=== PATIENT | male | born 1955 | race Caucasian/White ===

== ENCOUNTER 2025-02-04 11:00 | Outpatient (CLI) | payer MEDICARE, SELFPAY ==
--- OUTSIDE RECORDS SUMMARY | 2025-02-04 11:10 | XMS_ITS | Referral Summary ---
Author Organization [facility] [address] Address [address] [place] [address] Care Team Providers Care Dental Specialist Name Role Phone Jae Macdonald MD Primary Care Provider Main Vanessa MD Unavailable Stephanie Angela MD Unavailable [phone] Allergies No known active allergies Medications multivitamin capsule Take 1 capsule by mouth daily Active famotidine (PEPCID) 20 mg tablet Take 1 tablet (20 mg total) by mouth 2 (two) times a day 10/22/2020 Active atorvastatin (LIPITOR) 80 mg tablet Take 1 tablet (80 mg total) by mouth nightly 08/23/2020 Active melatonin 5 mg tablet,chewable Take 1 tablet/chew tab by mouth nightly 07/10/2019 Active rivaroxaban (XARELTO) 20 mg tablet Take 1 tablet (20 mg total) by mouth daily with dinner 09/05/2020 Active tamsulosin (FLOMAX) 0.4 mg extended release capsule Take 1 capsule (0.4 mg total) by mouth nightly 02/15/2021 Active aspirin 81 mg enteric coated tablet Take 1 tablet (81 mg total) by mouth daily Active dofetilide (TIKOSYN) 500 mcg capsuleIndicati ons:cardiac arrhythmia Take 1 capsule (500 mcg total) by mouth 2 (two) times a day 180 capsule 3 09/06/2022 Active magnesium oxide (MAG-OX) 400 mg (241.3 mg elemental magnesium) tabletIndicatio ns:hypomagnesem ia Take 1 tablet (400 mg total) by mouth 2 (two) times a day 60 tablet 11 09/06/2022 Active lisinopriL (PRINIVIL,ZESTR IL) 5 mg tablet Take 1 tablet (5 mg total) by mouth daily 30 tablet 02/13/2023 Active Active Problems Problem Noted Date Diagnosed Date S/P ablation of atrial fibrillation 02/12/2023 Atrial fibrillation 09/03/2022 Abnormal cardiovascular stress test 02/21/2021 Overview (02/21/2021): Added automatically from request for surgery [id number] S/P mitral valve repair 06/12/2017 Atrial flutter 09/17/2014 Overview (12/28/2016): A flutter Social History Tobacco Use Types Packs/Day Years Used Date Smoking Tobacco: Former Cigarettes 1 8 0 09/23/1973 - 09/23/1981 Smokeless Tobacco: Never Tobacco Cessation:Counseling Given: Not Answered Alcohol Use Standard Drinks/Week Comments Yes 0 (1 standard drink = 0.6 oz pur e alcohol) AUDIT-C Answer Date Recorded Q1: How often do you have a drink containing alcohol? Never 09/03/2022 Q2: How many drinks containi ng alcohol do you have on a typical day when you are drinking? Patient does not drink Q3: How often do you have si x or more drinks on one occasion? 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 Gender Identity Not on file Sexual Orientation Not on file Last Filed Vital Signs Vital Sign Reading Time Taken Comments Blood Pressure 154/70 02/13/2023 11:24 AM CDT Pulse 74 02/13/2023 11:50 AM CDT Temperature 37 C (98.6 F) 02/13/2023 11:24 AM CDT Respiratory Rate 20 02/13/2023 11:24 AM CDT Oxygen Saturation 95% 02/13/2023 11:24 AM CDT Inhaled Oxygen Concentration - - Weight 84.4 kg (186 lb) 02/12/2023 10:51 AM CDT Height 182.9 cm (6') 02/12/2023 10:51 AM CDT Body Mass Index 25.23 02/12/2023 10:51 AM CDT Plan of Treatment Not on file Insurance IDTN [facility] MEDICAID MEDICARE [facility] Address: [address] [address] [place] [address] MEDICARE IDTN MEDICARE [facility] Advance Directives For more information, please contact: [phone] * Full Code (Latest Code Status on File) Date Activated Date Inactivated Comments 09/05/2022 9:02 AM 09/06/2022 6:16 PM Care Teams Dental Specialist Relationship Specialty Start Date End Date Jae Macdonald MD [address] [address] PCP - General Gastroenterology 09/03/22 Main Vanessa MD [address] [facility] [place] [address] Consulting Physician Cardiovascular Disease 09/06/22 Stephanie Angela MD [address] [facility] [place] [address] Consulting Physician Cardiology 02/13/23
--- OUTSIDE RECORDS SUMMARY | 2025-02-04 11:10 | XMS_ITS | Encounter Summary ---
Author Organization [facility] Address [address] [facility] [address] [place] [id number] Care Team Providers Care Textile Machine Operator Name Role Phone David De La Rosa MD Primary Care Provider [phone] David De La Rosa MD Primary Care Provider [phone] Jae Macdonald MD Primary Care Provider Main Vanessa MD Unavailable Stephanie Angela MD Unavailable [phone] Encounter Details Date Type Department Care Team (Late st Contact Info) Description 10/23/2016 Orders Only [facility] ProviderLee MD [address] [place] [id number] Social History Tobacco Use Types Packs/Day Years Used Date Smoking Tobacco: Former Cigarettes Q uit: 09/23/1979 Alcohol Use Standard Drinks/Week Comments Yes 0 (1 standard drink = 0.6 oz pur e alcohol) Sex and Gender Information Value Date Recorded Sex Assigned at Not on file 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 Historical Provider [facility] Final Result documented in this encounter Visit Diagnoses Not on filedocumented in this encounter Care Teams Textile Machine Operator Relationship Specialty Start Date End Date David De La Rosa MD PCP - General 12/21/16 09/02/22 David De La Rosa MD PCP - General 03/12/13 12/20/16 Jae Macdonald MD [address] [address] PCP - General Gastroenterology 09/03/22 Main Vanessa MD [address] [place] [address] Consulting Physician Cardiovascular Disease 09/06/22 Stephanie Angela MD [address] [place] [address] Consulting Physician Cardiology 02/13/23 documented as of this encounter
--- OUTSIDE RECORDS SUMMARY | 2025-02-04 11:10 | XMS_ITS | Data Portability ---
[facility] Organization [facility] Address [address] [place] [address] Care Team Providers Care Java Analyst Name Role Phone JAE MACDONALD Primary Care Provider Unavailabl e Assessment No assessment recorded. Plan of Treatment Reminders Order Date Submit Date Provider Last Modified By Organization Details Last Modified Time Details Appointments ANY 15 2025 09:15A Silver Kidd MD Not available Not available Not available Lab CBC 2024 025 kolby [facility] (Lab), [address] [place], [address], 11/20/2024 12:25:29 CMP, serum or plasma 2024 025 [facility] (Lab), [address] [place], [address], 11/20/2024 20:43:25 PSA, total, serum or plasma [address] [facility], [address] [place] [address], [place] [address], [place], [address], 10/06/2024 13:10:10 CMP, serum or plasma [address] [facility], [address] [place] [address], [place] [address], [place], [address], 10/06/2024 13:10:09 lipid panel, serum [address] [facility], [address] [place] [address], [address] [place], [address], 10/06/2024 13:10:07 CBC 2024 025 [facility], [address], [address], [place], [address], 10/06/2024 13:10:11 Referral gastro entero logist referr al 2024 025 sravan ford [facility], [address], [place], [address], 11/17/2024 17:21:57 Procedures colono scopy proced ure (PROC) - If patien t is on blood thinne r less than 6 month, cleara nce is requir ed by prescr ibing provid er. If patien t is on blood thinne r over 6 months , blood thinne r is suppos ed to stoppe d 5 days prior to proced ure.Pa cemake r or defibr illato r?: NPrep (Colon oscopy Proced ure): PEG 3350, Go Lytely , Colyte or Gavaly te G, depend ing on insura nce covera geIf juliann chew has had duff ry / vascul ar stent, provid e date: NoNavdeep chew has had heart attack or stroke , provid e date: Emery chew ever had proble ms with anesth esia or sedati on?: Emery chew had proble ms with openin g mouth or breath ing tubes? : NoDoes juliann chew use a wheelc hair?: N 2024 025 Sakshi-Resubmit -Revert [facility] (Surgery Sched), [address] [facility] [address], [place], [address], 11/20/2024 14:50:38 Surgeries None record ed. Imaging None record ed. Medication Orders Vascep a 1 gram capsul e 2024 025 [id number], [address] [facility], [place], [place], [id number], 12/22/2024 12:03:12 Dulcol ax (bisac odyl) 5 mg tablet ,delay ed releas e [address] [facility][id number], [address], [place], [id number], 12/22/2024 11:20:54 Mirala x 17 gram/d ose oral powder [address] [facility][id number], [address], [place], [id number], 12/22/2024 11:20:42 Patient TargetsNo targets recorded. Patient Instructions Encounter Date Encounter Id Patient Instructions Last Modified By Organization Details Last Modified Time 10/05/2024 [id number] learning about high blood pressure Not available 10/05/2024 11:56:14 high cholesterol: care instructions [email or web address] Not available 10/05/2024 11:56:14 11/12/2024 [id number] learning about high blood pressure [email or web address] Not available 11/12/2024 11:51:39 high cholesterol: care instructions [email or web address] Not available 11/12/2024 11:51:39 11/20/2024 [id number] RL [email or web address] Not available 11/20/2024 12:01:18 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 Referral for History of polyp of colon Surveillance colonoscopy Referring Physician: Jae Macdonald, Internal Medicine, Encounter Date: 10/05/2024 Results Created Date Observation Date Name Description Value Unit Range Abnormal Flag Note LastModifiedBy Organization Detail LastModifiedTime 10/05/1910/06/2024 LIPID PANEL cholesterol, total 100 mg/dL 100-19 9 Not Available [facility] ([facility]) [address] [facility], [place], [address], 10/06/2024 13:10:07 10/05/19 25 10/06/2024 LIPID PANEL triglyceride s 318 mg/dL 0-149 above high normal Not Available [facility] ([facility]) [address] [facility] [place], [address], 10/06/2024 13:10:07 10/05/19 25 10/06/2024 LIPID PANEL HDL cholesterol 6 mg/dL >39 below low normal Not Available [facility] ([facility]) [address] [facility] [place], [address], 10/06/2024 13:10:07 10/05/19 25 10/06/2024 LIPID PANEL VLDL cholesterol ricardo 49 mg/dL 5-40 above high normal Not Available [facility] ([facility]) [address] [facility] [place], [address], 10/06/2024 13:10:07 10/05/19 25 10/06/2024 LIPID PANEL LDL chol calc ([facility]) 45 mg/dL 0-99 Not Available [facility] ([facility]) [address] [facility] [place], [address], 10/06/2024 13:10:07 10/05/19 25 10/06/2024 COMP. METAB OLIC PANEL (14) glucose 102 mg/dL 70-99 above high normal Not Available [facility] ([facility]) [address] [facility] [place], [address], 10/06/2024 13:10:09 10/05/19 25 10/06/2024 COMP. METAB OLIC PANEL (14) BUN 27 mg/dL 8-27 Not Available [facility] ([facility]) [address] [facility] [place], [address], 10/06/2024 13:10:09 10/05/19 25 10/06/2024 COMP. METAB OLIC PANEL (14) creatinine 1.02 mg/dL 0.76-1 .27 Not Available [facility] ([facility]) [address] [facility] [place], [address], 10/06/2024 13:10:09 01/13/20 25 10/06/2024 COMP. METAB OLIC PANEL (14) eGFR 80 mL/mi n/1.7 3 >59 Not Available [facility] ([facility]) [address] [place], [address], 10/06/2024 13:10:09 10/05/19 25 10/06/2024 COMP. METAB OLIC PANEL (14) BUN/creatini ne ratio 26 10-24 above high normal Not Available [facility] ([facility]) [address] [place], [address], 10/06/2024 13:10:09 10/05/19 25 10/06/2024 COMP. METAB OLIC PANEL (14) sodium 134 mmol/ L 134-14 4 Not Available [facility] ([facility]) [address] [place], [address], 10/06/2024 13:10:09 10/05/19 25 10/06/2024 COMP. METAB OLIC PANEL (14) potassium 4.9 mmol/ L 3.5-5. 2 Not Available [facility] ([facility]) [address] [place], [address], 10/06/2024 13:10:09 10/05/19 25 10/06/2024 COMP. METAB OLIC PANEL (14) chloride 101 mmol/ L 96-106 Not Available [facility] ([facility]) [address] [place], [address], 10/06/2024 13:10:09 10/05/19 25 10/06/2024 COMP. METAB OLIC PANEL (14) carbon dioxide, total 23 mmol/ L 20-29 Not Available [facility] ([facility]) [address] [place], [address], 10/06/2024 13:10:09 10/05/19 25 10/06/2024 COMP. METAB OLIC PANEL (14) calcium 8.5 mg/dL 8.6-10 .2 below low normal Not Available [facility] ([facility]) [address] [place], [address], 10/06/2024 13:10:09 10/05/19 25 10/06/2024 COMP. METAB OLIC PANEL (14) protein, total 7.3 g/dL 6.0-8. 5 Not Available [facility] ([facility]) [address] [place], [address], 10/06/2024 13:10:09 10/05/19 25 10/06/2024 COMP. METAB OLIC PANEL (14) albumin 3.0 g/dL 3.9-4. 9 below low normal Not Available [facility] ([facility]) [address] [place], [address], 10/06/2024 13:10:09 10/05/19 25 10/06/2024 COMP. METAB OLIC PANEL (14) globulin, total 4.3 g/dL 1.5-4. 5 Not Available [facility] ([facility]) [address] [place], [address], 10/06/2024 13:10:09 10/05/19 25 10/06/2024 COMP. METAB OLIC PANEL (14) bilirubin, total 0.6 mg/dL 0.0-1. 2 Not Available [facility] ([facility] [address] [place] [place], [address], 10/06/2024 13:10:09 10/05/19 25 10/06/2024 COMP. METAB OLIC PANEL (14) alkaline phosphatase 107 IU/L 44-121 Not Available [facility] ([facility]) [address] [place], [address], 10/06/2024 13:10:09 10/05/19 25 10/06/2024 COMP. METAB OLIC PANEL (14) AST (SGOT) 20 IU/L 0-40 Not Available [facility] ([facility]) [address] [facility], [place], [address], 10/06/2024 13:10:09 10/05/19 25 10/06/2024 COMP. METAB OLIC PANEL (14) ALT (SGPT) 19 IU/L 0-44 Not Available [facility] ([facility]) [address] [facility], [place], [address], 10/06/2024 13:10:09 10/05/19 25 10/06/2024 PROST ATE-S PECIF IC AG prostate specific Ag 0.3 NG/mL 0.0-4. 0 Bernabe ECLIA metho dolog y. Accor ding to the Ameri can Urolo gical Assoc iatio n, Serum PSA shoul d decre ase and remai n at undet ectab le level s after radic al prost atect tigre. The AUA defin es bioch emica l recur rence as an initi al PSA value 0.2 ng/mL or great er follo wed by a subse quent confi rmato ry PSA value 0.2 ng/mL or great er. Value s obtai pablo with diffe rent assay metho ds or kits canno t be used inter worley eably . Resul ts canno t be inter prete d as absol [place] evide nce of the prese nce or absen ce of [facility] se. Not Available [facility] ([facility]) [address] [facility], [place], [address], 10/06/2024 13:10:10 10/05/19 25 10/05/2024 CBC, PLATE LET, NO DIFFE RENTI AL WBC 13.0 x10e3 /uL 3.4-10 .8 above high normal Not Available [facility] ([facility]) [address] [facility], [place], [address], 10/06/2024 13:10:11 10/05/19 25 10/05/2024 CBC, PLATE LET, NO DIFFE RENTI AL RBC 3.48 x10e6 /uL 4.14-5 .80 below low normal Not Available [facility] ([facility]) [address] [facility], [place], [address], 10/06/2024 13:10:11 10/05/19 25 10/05/2024 CBC, PLATE LET, NO DIFFE RENTI AL hemoglobin 10.9 g/dL 13.0-1 7.7 below low normal Not Available [facility] ([facility]) [address] [facility], [place], [address], 10/06/2024 13:10:11 10/05/1910/05/2024 CBC, PLATE LET, NO DIFFE RENTI AL hematocrit 32.1 % 37.5-5 1.0 below low normal Not Available [facility] ([facility]) [address] [facility], [place], [address], 10/06/2024 13:10:11 10/05/19 25 10/05/2024 CBC, PLATE LET, NO DIFFE RENTI AL MCV 92 fL 79-97 Not Available [facility] ([facility]) [address] [place], [address], 10/06/2024 13:10:11 10/05/19 25 10/05/2024 CBC, PLATE LET, NO DIFFE RENTI AL MCH 31.3 pg 26.6-3 3.0 Not Available [facility] ([facility]) [address] [place], [address], 10/06/2024 13:10:11 10/05/19 25 10/05/2024 CBC, PLATE LET, NO DIFFE RENTI AL MCHC 34.0 g/dL 31.5-3 5.7 Not Available [facility] ([facility]) [address] [facility], [place], [address], 10/06/2024 13:10:11 10/05/19 25 10/05/2024 CBC, PLATE LET, NO DIFFE RENTI AL RDW 13.1 % 11.6-1 5.4 Not Available [facility] ([facility]) [address] [facility], [place], [address], 10/06/2024 13:10:11 10/05/19 25 10/05/2024 CBC, PLATE LET, NO DIFFE RENTI AL platelets 116 x10e3 /uL 150-45 0 below low normal Not Available [facility] ([facility]) [address] [facility], [place], [address], 10/06/2024 13:10:11 10/14/19 25 10/15/2024 LIPID PANEL cholesterol, total 94 mg/dL 100-19 9 below low normal Not Available [facility] ([facility]) [address] [facility], [place], [address], 10/15/2024 06:19:40 10/14/19 25 10/15/2024 LIPID PANEL triglyceride s 304 mg/dL 0-149 above high normal Not Available [facility] ([facility]) [address] [facility], [place], [address], 10/15/2024 06:19:40 10/14/19 25 10/15/2024 LIPID PANEL HDL cholesterol 7 mg/dL >39 below low normal Not Available [facility] ([facility]) [address] [facility], [place], [address], 10/15/2024 06:19:40 10/14/19 25 10/15/2024 LIPID PANEL VLDL cholesterol ricardo 47 mg/dL 5-40 above high normal Not Available [facility] ([facility]) [address] [place], [address], 10/15/2024 06:19:40 10/14/19 25 10/15/2024 LIPID PANEL LDL chol calc (nih) 40 mg/dL 0-99 Not Available [facility] ([facility]) [address] [place], [address], 10/15/2024 06:19:40 10/14/19 25 10/15/2024 VITAM IN B12 AND FOLAT E vitamin B12 634 pg/mL 232-12 45 Not Available [facility] ([facility]) [address] [place], [address], 10/15/2024 06:19:41 10/14/19 25 10/15/2024 VITAM IN B12 AND FOLAT E folate (folic acid), serum 15.5 NG/mL >3.0 A serum folat e tahir ntrat ion of less than 3.1 ng/mL is consi dered to repre sent clini ricardo defic iency . Not Available [facility] ([facility]) [address] [place], [address], 10/15/2024 06:19:41 10/14/19 25 10/15/2024 FE+TI BC+FE R iron bind.cap.(TI BC) 253 ug/dL 250-45 0 Not Available [facility] ([facility]) [address] [facility], [place], [address], 10/15/2024 06:19:42 10/14/19 25 10/15/2024 FE+TI BC+FE R UIBC 149 ug/dL 111-34 3 Not Available [facility] ([facility]) [address] [place], [address], 10/15/2024 06:19:42 10/14/19 25 10/15/2024 FE+TI BC+FE R iron 104 ug/dL 38-169 Not Available [facility] ([facility]) [address] [place], [address], 10/15/2024 06:19:42 10/14/19 25 10/15/2024 FE+TI BC+FE R iron saturation 41 % 15-55 Not Available [facility] ([facility]) [address] [place], [address], 10/15/2024 06:19:42 10/14/19 25 10/15/2024 FE+TI BC+FE R ferritin 1391 NG/mL 30-400 above high normal Not Available [facility] ([facility]) [address] [facility], [place], [address], 10/15/2024 06:19:42 10/14/19 25 10/17/2024 VITAM IN B1 (THIA MINE) , BLOOD vit. B1, whole blood 117.2 nmol/ L 66.5-2 00.0 Not Available [facility] ([facility]) [address] [facility], [place], [address], 10/18/2024 06:44:31 11/20/19 25 11/20/2024 COMPR EHENS RAHEEM METAB OLIC PANEL sodium 138 mmol/ L 134-14 4 normal Not Available [facility] (Lab) [address] [place], [address], 11/20/2024 20:43:25 11/20/19 25 11/20/2024 COMPR EHENS RAHEEM METAB OLIC PANEL potassium 4.0 mmol/ L 3.5-5. 2 Not Available [facility] (Lab) [address] [place], [address], 11/20/2024 20:43:25 11/20/19 25 11/20/2024 COMPR EHENS RAHEEM METAB OLIC PANEL chloride 103 mmol/ L 96-106 normal Not Available [facility] (Lab) [address] [place], [address], 11/20/2024 20:43:25 11/20/19 25 11/20/2024 COMPR EHENS RAHEEM METAB OLIC PANEL carbon dioxide 29 mmol/ L 20-29 normal Not Available [facility] (Lab) [address] [place], [address], 11/20/2024 20:43:25 11/20/19 25 11/20/2024 COMPR EHENS RAHEEM METAB OLIC PANEL anion gap 11.0 mmol/ L Not Available [facility] (Lab) [address] [place], [address], 11/20/2024 20:43:25 11/20/19 25 11/20/2024 COMPR EHENS RAHEEM METAB OLIC PANEL blood urea nitrogen 24 mg/dL 8-27 normal Not Available [facility] (Lab) [address] [place], [address], 11/20/2024 20:43:25 11/20/19 25 11/20/2024 COMPR EHENS RAHEEM METAB OLIC PANEL creatinine 0.96 mg/dL 0.76-1 .27 normal Not Available [facility] (Lab) [address] [place], [address], 11/20/2024 20:43:25 11/20/19 25 11/20/2024 COMPR EHENS RAHEEM METAB OLIC PANEL glomerular filtration rate 86 mL/mi n/1 Not Available [facility] (Lab) [address] [place], [address], 11/20/2024 20:43:25 11/20/19 25 11/20/2024 COMPR EHENS RAHEEM METAB OLIC PANEL BUN creatinine ratio 24 10-24 normal Not Available [facility] (Lab) [address] [facility], [place], [address], 11/20/2024 20:43:25 11/20/19 25 11/20/2024 COMPR EHENS RAHEEM METAB OLIC PANEL glucose 106 mg/dL 70-99 high Not Available [facility] (Lab) [address] [place], [address], 11/20/2024 20:43:25 11/20/19 25 11/20/2024 COMPR EHENS RAHEEM METAB OLIC PANEL osmolality calculated 280 280-30 1 normal Not Available [facility] (Lab) [address] [place], [address], 11/20/2024 20:43:25 11/20/19 25 11/20/2024 COMPR EHENS RAHEEM METAB OLIC PANEL calcium 9.2 mg/dL 8.6-10 .2 normal Not Available [facility] (Lab) [address] [place], [address], 11/20/2024 20:43:25 11/20/19 25 11/20/2024 COMPR EHENS RAHEEM METAB OLIC PANEL bilirubin total 0.3 mg/dL 0.0-1. 2 normal Not Available [facility] (Lab) [address] [place], [address], 11/20/2024 20:43:25 11/20/19 25 11/20/2024 COMPR EHENS RAHEEM METAB OLIC PANEL AST aspartate aminotransfe rase 29 IU/L 0-40 normal Not Available [facility] ([facility]) [address], [place], [address], 11/20/2024 20:43:25 11/20/19 25 11/20/2024 COMPR EHENS RAHEEM METAB OLIC PANEL ALT (alanine aminotransfe rase) 26 IU/L 0-44 normal Not Available [facility] (Lab) [address] [place], [address], 11/20/2024 20:43:25 11/20/19 25 11/20/2024 COMPR EHENS RAHEEM METAB OLIC PANEL total protein 8.1 g/dL 6.0-8. 5 normal Not Available [facility] (Lab) [address] [place], [address], 11/20/2024 20:43:25 11/20/19 25 11/20/2024 COMPR EHENS RAHEEM METAB OLIC PANEL albumin level 4.0 g/dL 3.9-4. 9 normal Not Available [facility] (Lab) [address] [place], [address], 11/20/2024 20:43:25 11/20/19 25 11/20/2024 COMPR EHENS RAHEEM METAB OLIC PANEL globulin 4.1 g/dL 1.5-4. 5 normal Not Available [facility] (Lab) [address] [place], [address], 11/20/2024 20:43:25 11/20/19 25 11/20/2024 COMPR EHENS RAHEEM METAB OLIC PANEL albumin globulin ratio 1.0 1.2-2. 2 low Not Available [facility] (Lab) [address], [place], [address], 11/20/2024 20:43:25 11/20/19 25 11/20/2024 COMPR EHENS RAHEEM METAB OLIC PANEL alkaline phosphatase 79 IU/L 44-121 normal Not Available [facility] (Lab) [address], [place], [address], 11/20/2024 20:43:25 Result Notes None recorded. Problems Name Problem SNOMED Code Status Onset Date Resolution Date Notes Provider Name and Address Organization Details Recorded Time [facility] hyperten any 38155486 Active 2017 Not Available [facility] 3 22:33:39 History of polyp of colon 208843039 Active 2017 Not Available [facility] 3 22:33:39 History of atrial flutter 623964614 Active 2017 Not Available [facility] 3 22:33:39 Lower urinary tract symptoms 104264076 Active 2017 Slow urinary flow Not Available [facility] 3 22:33:39 History of urethral strictur e 858097876 Active 2017 Not Available [facility] 3 22:33:39 Hepatiti s C virus detected by enzyme-l inked immunoso rbent assay 892696771 Completed 201710/29/2018 Removal Reason: Confirma tory assay negative Jae Macdonald MD Attn: Accounting ,[address] [place], [address] , [facility] 9 11:35:16 Screenin g for malignan t neoplasm of prostate Active 2017 Not Available [facility] 3 22:33:39 Hyperlip idemia 24708149 Active 2018 Not Available [facility] 3 22:33:39 Hypergly cemia 03859671 Active 2018 Not Available [facility] 3 22:33:39 Divertic ular disease 641883545 Active 2018 Not Available [facility] 3 22:33:39 History of repair of mitral valve 019993640 Active 2018 Not Available [facility] 3 22:33:39 Gastroes ophageal reflux disease without esophagi tis 518083503 Active 2018 Not Available [facility] 3 22:33:39 Active immuniza tion Active 2018 Not Available [facility] 3 22:33:39 Cardiova scular stress test abnormal 664540933 Active 2019 Not Available [facility] 3 22:33:39 Injury of right shoulder 91946569604 485608 Active 2021 Not Available [facility] 3 22:33:39 Chronic atrial fibrilla tion 614888340 Active 2021 Not Available [facility] 3 22:33:39 Cardiac arrhythm ia 583260688 Active 2022 Not Available [facility] 3 22:33:39 Bradycar amarjit 11577035 Active 2022 Not Available [facility] 3 22:33:39 Disorder of skin 26128885 Active 2023 Jae Macdonald MD Attn: Accounting ,[address] [place], [address] , [place] [facility] 4 05:49:08 Blood in urine 56995217 Active 2023 Jae Macdonald MD Attn: Accounting ,[address] [place], [address] , [place] [facility] 4 10:54:04 Anemia 311539385 Active 2024 Jae Macdonald MD Attn: Accounting ,[address] [place], [address] , [place] [facility] 5 02:36:12 Hypertri glycerid emia 423337678 Active 2024 Jae Macdonald MD Attn: Accounting ,[address] , [place], [address] , [facility] 5 11:59:31 Problem Notes None recorded. Procedures Surgical History Date Name Laterality Status Provider Name and Address Organization Details Recorded Time 09/23/19 08 mitral valvuloplasty completed Sebastien Rico DO [address] [place], [address], [facility] 11/19/2018 15:45:46 Imaging Results None recorded. Procedure Notes None recorded. Medical Equipment None Reported. Allergies No known drug allergies Medications Name Sig Start Date Stop Date Status Note LastModified by Organization Details LastModified Time amoxicilli n 500 mg capsule TAKE 1 CAPSULE BY MOUTH THREE TIMES DAILY UNTIL ALL TAKEN active Not Available Not Available No t Available atorvastat in 80 mg tablet TAKE 1 TABLET BY MOUTH EVERY DAY DIRECTED active Not Available Not Available No t Available aspirin 325 mg tablet Take 1 tablet every day by oral route. 08/31 completed Not Available Not Available Not Available metoprolol succinate ER 50 mg tablet,ext ended release 24 hr TAKE 1 TABLET BY MOUTH EVERY DAY 04/02 completed Not Available Not Available Not Available cephalexin 250 mg capsule 04/02 completed Not Available Not Available Not Available hydrocodon e 5 mg-acetami nophen 325 mg tablet TAKE 1 TABLET BY MOUTH DAILY EVERY 6 HOURS NEEDED FOR PAIN 02/20 completed Not Available Not Available Not Available clopidogre l 75 mg tablet TAKE 1 TABLET BY MOUTH DAILY 02/20 completed Not Available Not Available Not Available amlodipine 5 mg tablet TAKE 1 TABLET BY MOUTH DAILY 02/20 completed Not Available Not Available Not Available amoxicilli n 500 mg tablet TAKE 4 TABLETS BY MOUTH 1 HOUR BEFORE PROCEDUR E 02/20 completed Not Available Not Available Not Available oxycodone- acetaminop hen 5 mg-325 mg tablet 12/01 completed Not Available Not Available Not Available famotidine 20 mg tablet TAKE 1 TABLET BY MOUTH TWICE DAILY 02/20 completed Not Available Not Available Not Available magnesium oxide 400 mg (241.3 mg magnesium) tablet TAKE 1 TABLET BY MOUTH TWICE DAILY. active Not Available Not Available No t Available tamsulosin 0.4 mg capsule TAKE 1 CAPSULE BY MOUTH EVERY DAY DIRECTED active Not Available Not Available No t Available cephalexin 500 mg capsule TAKE ONE CAPSULE BY MOUTH TWICE DAILY 02/20 completed Not Available Not Available Not Available ramipril 2.5 mg capsule TAKE 1 CAPSULE BY MOUTH EVERY DAY 04/02 completed Not Available Not Available Not Available lisinopril 10 mg tablet TAKE 1 TABLET BY MOUTH DAILY 04/02 completed Not Available Not Available Not Available warfarin 5 mg tablet 02/20 completed Not Available Not Available Not Available amoxicilli n 250 mg capsule TAKE 1 CAPSULE BY MOUTH 1 HOUR PRIOR TO DENTAL APPOINTM ENT 05/16 completed Not Available Not Available Not Available bisacodyl 5 mg tablet,del ayed release At 2:00 PM the day before the colonosc opy, take all 4 tablets of Dulcolax by mouth at one time with 8 ounces of water 12/22 completed Not Available Not Available Not Available lisinopril 5 mg tablet TAKE 1 TABLET BY MOUTH EVERY DAY active haven't been taking Not Available Not Available Not Available mupirocin 2 % topical ointment 11/19 completed Not Available Not Available Not Available polyethyle ne glycol 3350 17 gram/dose oral powder 12/22 completed Not Available Not Available Not Available dofetilide 500 mcg capsule TAKE 1 CAPSULE BY MOUTH TWICE DAILY active Not Available Not Available No t Available doxycyclin e hyclate 100 mg tablet 11/19 completed Not Available Not Available Not Available finasterid e 5 mg tablet TAKE 1 TABLET BY MOUTH EVERY DAY DIRECTED 2024 active Not Available Not Available Not Avai lable ramipril 5 mg capsule TAKE 1 CAPSULE BY MOUTH EVERY DAY 02/20 completed Not Available Not Available Not Available diltiazem 90 mg tablet TAKE 1 TABLET BY MOUTH TWICE DAILY active Not Available Not Available No t Available ezetimibe 10 mg tablet TAKE 1 TABLET BY MOUTH EVERY DAY 2024 active Not Available Not Available Not Avai lable omega-3 acid ethyl esters 1 gram capsule TAKE 2 CAPSULE BY MOUTH TWICE DAILY WITH MEALS 12/22 completed Not Available Not Available Not Available peg 3350 240 gram-elect rolytes 22.72 gram-6.72 g-5.84 g powdr for soln 08/31 completed Not Available Not Available Not Available Suprep Bowel Prep Kit 17.5 gram-3.13 gram-1.6 gram oral solution Take 300 mL by oral route for 1 day. 08/31 completed Not Available Not Available Not Available Xarelto 20 mg tablet TAKE 1 TABLET BY MOUTH DAILY WITH MEAL active Not Available Not Available No t Available Vascepa 1 gram capsule TAKE 2 CAPSULES BY MOUTH TWICE DAILY active Not Available Not Available No t Available Afluria Quad (PF) 60 mcg (15 mcg x 4)/0.5 mL IM syringe 11/19 completed Not Available Not Available Not Available Afluria Qd 2019- (36 mos up)(PF)60 mcg (15 mcg x4)/0.5 mL IM syringe 08/15 completed Not Available Not Available Not Available Vitals Date Recorded Body height Body mass index (BMI) Body weight Heart rate Oxygen saturation Oxygen saturation in Arterial blood by Pulse oximetry Systolic blood pressure Diastolic blood pressure Provider Name and Address Organization Details Last Updated DateTime 5 182.88 cm 24.4 kg/m2 37456.0 6 g 73 /min 98 % 98 % 90 mm[Hg] 40 mm[Hg] Hector Morrison [place] - SIF 5 11:36:38 [id number]|2025-02-04 11:10:00|2025-02-04 11:10:00|XMS_ITS|ROSEMARY LOPEZ|External Medical Summaries|[id number]|" Clinical Summary Created on: February 04, 2025 Kristopher Truong : 1955 Sex: Male Author Organization [facility] Address [address] [place] [address] Care Team Providers Care Java Analyst Name Role Phone Jae Macdonald MD Primary Care Provider [phone] Source Comments [facility],non-owned Affiliates and Associated Physician Practices is amultiple site organization consisting of ambulatory clinics and hospital sitesin [place], [place] and [place]. This disclosure is being madepursuant to the Care Everywhere program and may not contain all information available regarding this patient. Last updated 18.[facility] Allergies No known active allergies Medications * Be aware that medications may not be up to date on this document. Alwaysverify current medications with the patient. ramipril (ALTACE) 5 MG capsule Take 5 mg by mouth once daily Active amLODIPine (NORVASC) 5 MG tablet Take 5 mg by mouth once daily Active warfarin (COUMADIN) 5 MG tablet Take 5 mg by mouth Active famotidine (PEPCID) 20 MG tablet Take 20 mg by mouth 2 times daily Active tamsulosin (FLOMAX) 0.4 MG capsule Take 0.4 mg by mouth once daily At the same time every day after a meal. 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 Gender Identity Not on file Sexual Orientation Not on file Last Filed Vital Signs Vital Sign Reading Time Taken Comments Blood Pressure 125/66 08/23/2020 8:22 AM HOOKING MACHINE OPERATOR Pulse 55 08/23/2020 8:22 AM HOOKING MACHINE OPERATOR Temperature 36.7 C (98 F) 08/23/2020 8:22 AM HOOKING MACHINE OPERATOR Respiratory Rate 18 08/23/2020 8:22 AM HOOKING MACHINE OPERATOR Oxygen Saturation 93% 08/23/2020 8:22 AM HOOKING MACHINE OPERATOR Inhaled Oxygen Concentration - - Weight 86.9 kg (191 lb 9.6 oz) 08/22/2020 12:50 PM HOOKING MACHINE OPERATOR Height 182.9 cm (6') 08/22/2020 12:50 PM HOOKING MACHINE OPERATOR Body Mass Index 25.99 08/22/2020 12:50 PM HOOKING MACHINE OPERATOR Plan of Treatment Health Maintenance Due Date Last Done Comments COLOGUARD (AGES 45-75) - COL ON CA SCREENING 1955 COLON MONITORING 1955 COLONOSCOPY - COLON CA SCREENING 1955 CT COLONOGRAPHY - COLON CA SCREENING 1955 Colorectal Cancer Screening 1955 FIT - COLON CA SCREENING 1955 FLEX SIG - COLON CA SCREENING 1955 HEPATITIS C SCREENING 08/21/1973 DTAP/TDAP/TD VACCINES (1 - Tdap) 1974 PNEUMOCOCCAL VACCINE 50+ (1 of 1 - PCV) 2005 ZOSTER VACCINE (1 of 2) 2005 COVID-19 VACCINE ( - 2023-2 5 season) 2024 DEPRESSION SCREENING 09/23/2024 INFLUENZA VACCINE (Season Ended) 2025 Respiratory Syncytial Virus (RSV) Vaccine Pt: or over 60 yrs (1 - 1-dose 75+ series) 2030 HEPATITIS B VACCINE Aged Out No longe r eligible based on patient's age to complete this topic HIB VACCINE Aged Out No longer eligi ble based on patient's age to complete this topic HPV VACCINE Aged Out No longer eligi ble based on patient's age to complete this topic MENINGOCOCCAL (Group B) VACC INE SHARED DECISION-MAKING Aged Out No longer eligibl e based on patient's age to complete this topic MENINGOCOCCAL GROUPS A/C/Y/W VACCINE Aged Out No longer eligible b ased on patient's age to complete this topic Insurance MEDICARE Advance Directives * Full Code (Latest Code Status on File) Date Activated Date Inactivated Comments 08/22/2020 3:54 PM 08/23/2020 12:36 PM * Full Code Date Activated Date Inactivated Comments 08/22/2020 3:34 PM 08/22/2020 3:54 PM Care Teams Java Analyst Relationship Specialty [place] [address] [place] [phone] PCP - General Gastroenterology 08/27/19 "
--- OUTSIDE RECORDS SUMMARY | 2025-02-04 11:10 | XMS_ITS | Clinical Summary ---
Author Organization [facility] Shawn De Jesus Address [address] [place] [address] Care Team Providers Care Manager Test Name Role Phone Unavailable Primary Care Provider Unavailabl e Allergies No known active allergies Medications atorvastatin (LIPITOR) 80 mg tablet Take 80 mg by mouth daily. 11/20/2022 Active ezetimibe (ZETIA) 10 mg tablet Take 1 Tablet by mouth daily. 01/17/2025 Active Xarelto 20 mg Tablet Take 20 mg by mouth daily with supper. 02/19/2023 Active dofetilide (TIKOSYN) 500 mcg capsule Take 500 mcg by mouth 2 times daily. Active dilTIAZem (CARDIZEM) 90 mg tablet Take 90 mg by mouth 2 times daily. 02/21/2024 Active finasteride (PROSCAR) 5 mg tablet Take 5 mg by mouth daily. 11/24/2024 Active tamsulosin (FLOMAX) 0.4 mg capsule Take 0.4 mg by mouth daily. Active aspirin (ECOTRIN EC) 81 mg Tablet, Delayed Release (E.C.) Take 81 mg by mouth daily. Active famotidine (PEPCID) 20 mg tablet Take 20 mg by mouth 2 times daily. Active magnesium OXIDE (MAG-OX) 400 mg (241.3 mg magnesium) tablet Take 400 mg by mouth 2 times daily. 09/06/2022 Active icosapent ethyl (VASCEPA ORAL) Take 1,000 mg by mouth 2 times daily. Active flaxseed oil (OMEGA 3 ORAL) Take by mouth 2 times daily. OMEGA 3-VASCEPA 1000MG Active Active Problems No known active problems Encounters Date Type Department Care Team Description 02/04/2025 10:30 AM CDT Office Visit [facility] On[facility] - [place] [address] [place] [address] Brennon Barton MD Chronic anemia (Primary Dx); Leukocytosis, unspecified type from Last 3 Months Family History Medical History Relation Name Comments Esophageal Cancer Brother Heart Disease Brother No Known Problems Child 1 No Known Problems Child 2 Heart Disease Father No Known Problems Mother No Known Problems Sister Relation Name Status Comments Brother Alive Child 1 Alive Child 2 Alive Father Mother Sister Alive Social History Tobacco Use Types Packs/Day Years Used Date Smoking Tobacco: Never Smokeless Tobacco: Never Tobacco Cessation:Counseling Given: Not Answered Alcohol Use Standard Drinks/Week Comments Never 0 (1 standard drink = 0.6 oz pur e alcohol) Sex and Gender Information Value Date Recorded Sex Assigned at Not on file 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 Gender Identity Not on file Sexual Orientation Not on file Last Filed Vital Signs Vital Sign Reading Time Taken Comments Blood Pressure 119/76 02/04/2025 10:22 AM CDT Pulse 72 02/04/2025 10:22 AM CDT Temperature 36.8 C (98.3 F) 02/04/2025 10:22 AM CDT Respiratory Rate 15 02/04/2025 10:22 AM CDT Oxygen Saturation 96% 02/04/2025 10:22 AM CDT Inhaled Oxygen Concentration - - Weight 80.7 kg (178 lb) 02/04/2025 10:22 AM CDT Height 180.3 cm (5' 11 ) 02/04/2025 10:22 AM CDT Body Mass Index 24.83 02/04/2025 10:22 AM CDT Plan of Treatment Upcoming Encounters Date Type Department Care Team (Late st Contact Info) Description 02/22/2025 4:30 PM CDT Telephone Check Up [facility] [place] [address] [place] [address] Brennon Barton MD [address] [place] [address] Health Maintenance Due Date Last Done Comments DTAP/TDAP/TD VACCINES (1 - Tdap) 1974 Traditional Medicare (ACO) A nnual Wellness Visit 1974 COLORECTAL SCREENING 2000 Colorectal Cancer Screening 2000 FIT-DNA Q 3 years 2000 FIT/FOBT Q 1 year 2000 Flex Sig/CT Colonography Q 5 years 2000 PNEUMOCOCCAL VACCINE 50+ YEA RS (1 of 1 - PCV) 2005 ZOSTER VACCINE (1 of 2) 2005 INFLUENZA VACCINE (#1) 2024 COVID-19 Vaccine (3 - 2023- season) 2024, 11/09/2020 RSV VACCINE (60+ or ) (1 - 1-dose 75+ series) 2030 Insurance MEDICARE PART A AND B BCBS SUPP
--- OUTSIDE RECORDS SUMMARY | 2025-02-04 11:10 | XMS_ITS | Clinical Summary ---
Author Organization [facility] Address [address] [place] [address] Care Team Providers Care Zone Maintenance Technician Name Role Phone Jae Macdonald MD Primary Care Provider [phone] Allergies No known active allergies Medications atorvastatin 80 MG tablet Take 80 mg by mouth nightly at bedtime. at bedtime. 10/12/2020 Active famotidine 20 MG tablet Take 20 mg by mouth 2 (two) times daily. 10/22/2020 Active Multiple Vitamin (MULTIVITAMIN) capsule Take 1 capsule by mouth daily. Active tamsulosin 0.4 MG Cap Take 0.4 mg by mouth every evening. 09/04/2020 Active HYDROcodone-cara taminophen 5-325 MG tabletIndicatio ns:Acute Pain < 3 Day Supply Take 1 tablet by mouth every 6 (six) hours as needed for Pain. Indications: Acute Pain < 3 Day Supply 12 tablet 11/20/2021 Active XARELTO 20 MG Tab tablet TAKE 1 TABLET BY MOUTH DAILY WITH MEAL 12/14/2021 Active ramipril 2.5 MG capsule Take 2.5 mg by mouth in the morning. 01/21/2022 Active Aspirin 81 MG Cap 09/22/2020 Active Active Problems Problem Noted Date Diagnosed Date Coronary artery disease invo lving [place] coronary artery of [place] heart 08/22/2020 Unspecified atrial fibrillation ([facility] ) 07/10/2019 S/P mitral valve repair 06/12/2017 Mitral valve disorder 02/27/2008 Immunizations Immunization Administration Dates Next Due MODERNA COVID-19 (12+) MRNA, LNP-S, PF, 100 MCG/ 0.5 ML DOSE 12/07/2020,11/09/2020 Family History Medical History Relation Comments Heart Disease Father Hypertension Father Hypertension Mother Stroke Mother Relation Status Comments Father Mother Social History Tobacco Use Types Packs/Day Years Used Date Smoking Tobacco: Former Cigarettes Smokeless Tobacco: Never Alcohol Use Standard Drinks/Week Comments Not Currently 0 (1 standard drink = 0.6 oz pur e alcohol) Sex and Gender Information Value Date Recorded Sex Assigned at Not on file Legal Sex Male 1:38 PM ETL DATABASE DEVELOPER Gender Identity Not on file Sexual Orientation Not on file Last Filed Vital Signs Vital Sign Reading Time Taken Comments Blood Pressure 153/92 05/15/2022 9:51 AM CDT Pulse 74 05/15/2022 9:51 AM CDT Temperature 36.7 C (98.1 F) 05/15/2022 9:51 AM CDT Respiratory Rate 18 05/15/2022 9:51 AM CDT Oxygen Saturation 99% 05/15/2022 9:51 AM CDT Inhaled Oxygen Concentration - - Weight 81.6 kg (180 lb) 05/15/2022 9:51 AM CDT Height 182.9 cm (6') 05/15/2022 9:51 AM CDT Body Mass Index 24.41 05/15/2022 9:51 AM CDT Plan of Treatment Health Maintenance Due Date Last Done Comments ASCVD LDL 1955 ASCVD Statin 1955 Colorectal Cancer Screening Colonoscopy (10 Years) 1955 Hepatitis C 1973 DTaP, Tdap and Td Vaccines ( 1 - Tdap) 1974 Pneumococcal Vaccine: 50+ Years (1 of 2 - PCV) 1974 Zoster Vaccines (1 of 2) 2005 RSV Immunization or 60+ Years (1 - Risk 60-74 years 1-dose series) 2015 Annual Medicare Wellness Visit 2020 COVID-19 Vaccine (3 - 2023-2 5 season) 2024 12/07/2020, 11/09/2020 Meningococcal B Vaccine Aged Out No l onger eligible based on patient's age to complete this topic Meningococcal Vaccine Aged Out No gus leidy eligible based on patient's age to complete this topic RSV Immunizations Under 20 Months Aged Out No longer eligible b ased on patient's age to complete this topic Medical Devices Implanted Type [employer] Executive Device Identifier Shelf Expiration Date Model / Serial / Lot Mitral Ring-05/27/2008 Implanted:2007 (Quantity not on file) Ring [employer] NILO [id number] / / Description:Diego martinez Classic annuloplasty mitral ring. MRI Conditional Stent Stent Heart Leonardo 4.75mm Peek Knotless Deale System Single Implanted:Qty: 1 on 02/22/2022 by You Pacheco MD at [facility] Right: Shoulder 07/08/2023 3910-500- [id number] / / [id number] Leonardo 4.75 Mm Peek Knotless Deale System Double-Double Implanted:Qty: 1 on 02/22/2022 by You Pacheco MD at [facility] Right: Shoulder 06/15/2023 [id number] / / [id number] Insurance MEDICAID MEDICARE Care Teams Zone Maintenance Technician Relationship Specialty Start Date End Date Jae Macdonald MD [address] [place] [phone] PCP - General INTERNAL MEDICINE 11/09/20
--- OUTSIDE RECORDS SUMMARY | 2025-02-04 11:10 | XMS_ITS | Encounter Summary ---
Author Organization [facility] [email or web address] [facility] Address [address] [place] [address] Care Team Providers Care Dry Goods Inspector Name Role Phone Unavailable Primary Care Provider Unavailabl e Reason for Visit * Reason Comments Establish Care Encounter Details Date Type Department Care Team (Late st Contact Info) Description 02/04/2025 10:30 AM CDT Office Visit [facility] Oncology and Hematology - [place] [address] [facility] [address] [place] [address] Brennon Barton MD [address] [facility] [address] [place] [address] Chronic anemia (Primary Dx); Leukocytosis, unspecified type Social History Tobacco Use Types Packs/Day Years Used Date Smoking Tobacco: Never Smokeless Tobacco: Never Tobacco Cessation:Counseling Given: Not Answered Alcohol Use Standard Drinks/Week Comments Never 0 (1 standard drink = 0.6 oz pur e alcohol) Sex and Gender Information Value Date Recorded Sex Assigned at Not on file Legal Sex 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 Problem list There is no problem list on file for this patient. Previous TREATMENT ? Measurable Disease ? Reason for Visit Kristopher Truong is a 69 y.o. male who was referred for consultation for chronic anemia and leukocytosis. History of present illness This is a pleasant 69-year-old male with history of hypertension, hyperlipidemia, atrial fibrillation and status post MVR in 2007. He had labs done in September 2024 that showed elevated WBC count of 13 with hemoglobin of 10.9. He does not remember that if he was sick then. His platelet count was low at 116,000 as well. He denies any chest pain and shortness of breath. Denies any bleedingand bruising. Denies any night sweats fevers and chills. No new lumps bumps and lymphadenopathy. Weight and appetite stable. He is not taking any iron supplement. He is on multivitamin. Patient had colonoscopy done just 1 month ago and that came back unremarkable. He denies any excessive tiredness and fatigue. No other new complaints. Past Medical History Past Medical History: Diagnosis Date Diverticulitis Hyperlipidemia Atrial fibrillation Hypertension Mitral valve prolapse s/p repair Surgical History Past Surgical History: Procedure Laterality Date HX CORONARY STENT PLACEMENT [id number] HX HERNIA MESH REMOVAL HX MITRAL VALVE REPAIR 2007 HX PACEMAKER PLACEMENT 2022 HX ROTATOR CUFF REPAIR Right 2023 Medications Current Outpatient Medications Medication Sig Dispense Refill atorvastatin (LIPITOR) 80 mg tablet Take 80 mg by mouth daily. ezetimibe (ZETIA) 10 mg tablet Take 1 Tablet by mouth daily. Xarelto 20 mg Tablet Take 20 mg by mouth daily with supper. dilTIAZem (CARDIZEM) 90 mg tablet Take 90 mg by mouth 2 times daily. finasteride (PROSCAR) 5 mg tablet Take 5 mg by mouth daily. magnesium OXIDE (MAG-OX) 400 mg (241.3 mg magnesium) tablet Take 400 mg by mouth 2 times daily. icosapent ethyl (VASCEPA ORAL) Take 1,000 mg by mouth 2 times daily. flaxseed oil (OMEGA 3 ORAL) Take by mouth 2 times daily. OMEGA 3-VASCEPA 1000MG dofetilide (TIKOSYN) 500 mcg capsule Take 500 mcg by mouth 2 times daily. tamsulosin (FLOMAX) 0.4 mg capsule Take 0.4 mg by mouth daily. aspirin (ECOTRIN EC) 81 mg Tablet, Delayed Release (E.C.) Take 81 mg by mouth daily. famotidine (PEPCID) 20 mg tablet Take 20 mg by mouth 2 times daily. No current facility-administered medications for this visit. Allergies No Known Allergies Immunizations: Immunization History Administered Date(s) Administered (SPIKEVAX) (12 YRS UP PRIMARY SERIES) COVID-19 VACCINE - MRNA-1273(PF) 100 MCG/0.5 ML IM SUSP 11/09/2020, 12/07/2020 Family History Family History Problem Relation Name Age of Onset Heart Disease Father No Known Problems Mother Esophageal Cancer Brother Heart Disease Brother No Known Problems Sister No Known Problems Child No Known Problems Child Social History Social History Tobacco Use Smoking status: Never Smokeless tobacco: Never Substance Use Topics Alcohol use: Never Review of Systems Constitutional: Patient did not mention fever; no night sweats; no anorexia; no weight loss; no fatique NEENT: Patient did not mention headache; no change in vision; no change in hearing; no sore throat;no dysphagia Respiratory: Patient did not mention shortness of breath; no pleuritic chest pain; no cough; no hemoptysis Cardiac: Patient did not mention cardiac-like chest pain; no palpitations; no orthopnea; no PND; noDOE GI: Patient did not mention abdominal pain; no nausea; no vomiting; no diarrhea; no hematochezia; no melena : Patient did not mention dysuria; no frequency; no hesitancy; no hematuria FLOWER SHOP LABORER/DESIGNER: Musculosketetal: Patient did not mention bone pain; no arthralgia; no joint swelling; no myalgia; Skin: Patient did not mention pruritis; no rash; no petechiae; no ecchymoses Endocrine: Patient did not mention polydipsia; no polyuria; no unusual weight gain Neuro: Patient did not mention headache; no change in vision; no sensory changes; no muscle weakness; no confusion; no seizures Psych: Patient did not mention anxiety; no depression; Physical Exam Vitals: As per nursing note Constitutional: Well developed, well nourished, no acute distress, non-toxic appearance Teeth and gum. No signs of infection or swelling. Eyes: PERRL, conjunctiva normal HEENT: Atraumatic, external ears normal, nose normal, oropharynx moist, no pharyngeal exudates. no sinus tenderness Neck- normal range of motion, no tenderness, supple Respiratory: No respiratory distress, normal breath sounds, no rales, no wheezing Cardiovascular: Normal rate, normal rhythm, no murmurs, no gallops, no rubs GI: Soft, nondistended, normal bowel sounds, nontender, no splenomegaly, no hepatomegaly, no mass, no rebound, no guarding : No costovertebral angle tenderness Musculoskeletal: No edema, no tenderness, no deformities. Back- no tenderness Integument: Well hydrated, no rash, Digits and nails inspection normal Lymphatic: No lymphadenopathy noted Neurologic: Alert & oriented x 3, CN 2-12 normal, normal motor function, normal sensory function, no focal deficits noted Psychiatric: Speech and behavior appropriate ? labs No results found for this or any previous visit (from the past 24 hours). Labs from September 2024 showed WBC 13 hemoglobin 10.9 platelet 116,000 MCV 92 calcium 8.5 creatinine1.0 Pathology ? Imaging & Other Studies Performance Status? Assessment / Plan: ? Leukocytosis, normocytic anemia and mild thrombocytopenia. Patient is a 69-year-old pleasant male with history of hypertension, hyperlipidemia, atrial fibrillation and mitral valve prolapsestatus post repair. He is taking Xarelto. He denies any bleeding but bruise easily. He denies any ex cessive tiredness and fatigue. Denies any night sweats fever chills. No lymphadenopathy on my examination. I will order the comprehensive workup for anemia that will include CBC with differential, CMP, soluble transferrin receptor, iron profile, vitamin B12 and folic acid level along with methylmalo cal acid level. I will check C-reactive protein, sedimentation rate and flow cytometric analysis for leukemia as well. Abdominal ultrasound and remainder of the workup will be done based on the labs ordered today. I will discuss these labs with him in 2 weeks. I have answered all the questions to patient satisfaction. Atrial fibrillation. Patient is on Xarelto. Hyperlipidemia. Patient is on Lipitor. Thank you very much for allowing me to participate in Kristopher Truong's evaluation and management. Please feel free to contact if I can be of any further assistance in your patientâ€™s care requiring hematology or oncology evaluation. Sincerely, ? ? Brennon Barton M.D. cell TOBACCO COUNSELING He is not a tobacco/nicotine user. Brennon Barton MD ,02/04/2025 10:53 AM ? Total time spent 60 minutes, two third of the total time spent counseling patient [id number]. CC:? documented in this encounter Plan of Treatment Upcoming Encounters Date Type Department Care Team (Late st Contact Info) Description 02/22/2025 4:30 PM CDT Telephone Check Up [facility] Oncology and Hematology - [place] [address] [facility] [address] [place] [address] Brennon Barton MD [address] [facility] [address] [place] [address] Scheduled Orders Name Type Priority Associated Diagnoses Orde r Schedule CBC WITH DIFFERENTIAL Lab Stat Chronic anemia Expected: 02/04/2025, Expires: 02/04/2026 COMPREHENSIVE METABOLIC PANEL Lab Stat Chronic anemia Expected: 02/04/2025, Expires: 02/04/2026 FERRITIN Lab Routine Chronic anemia Expected: 02/04/2025, Expires: 02/04/2026 IRON, TIBC, AND PERCENT SATURATION Lab Routine Chronic anemia Expected: 02/04/2025, Expires: 02/04/2026 LACTATE DEHYDROGENASE Lab Routine Chronic anemia Expected: 02/04/2025, Expires: 02/04/2026 METHYLMALONIC ACID Lab Routine Chronic anemia Expected: 02/04/2025, Expires: 02/04/2026 TRANSFERRIN RECEPTOR TFR SOLUBLE Lab Routine Chronic anemia Expected: 02/04/2025, Expires: 02/04/2026 VITAMIN B12 AND FOLATE Lab Routine Chronic anemia Expected: 02/04/2025, Expires: 02/04/2026 FLOW CYTOMETRY PANEL Lab Routine Leukocytosis, unspecified type Expected: 02/04/2025, Expires: 02/04/2026 C-REACTIVE PROTEIN Lab Routine Leukocytosis, unspecified type Expected: 02/04/2025, Expires: 02/04/2026 SEDIMENTATION RATE Lab Routine Leukocytosis, unspecified type Expected: 02/04/2025, Expires: 02/04/2026 documented as of this encounter Visit Diagnoses Diagnosis Chronic anemia- Primary Anemia, unspecified Leukocytosis, unspecified type documented in this encounter
--- OUTSIDE RECORDS SUMMARY | 2025-02-04 11:10 | XMS_ITS | Clinical Summary ---
Author Organization [facility] [address] Address [address] [place] [address] Care Team Providers Care Mail Clerk Name Role Phone Jae Macdonald MD Primary Care Provider Main Vanessa MD Unavailable Stephanie Angela MD Unavailable [phone] Allergies No known active allergies Medications multivitamin [...] (02/21/2021): Added automatically from request for surgery [id number] S/P mitral valve repair 06/12/2017 Atrial flutter 09/17/2014 Overview (12/28/2016): A flutter Surgical History Surgery Date Site/Laterality Comments MITRAL VALVE REPAIR 09/23/2007 - 09/22/2008 Mitral Valve Repair CORONARY ANGIOPLASTY WITH STENT PLACEMENT HERNIA REPAIR 09/23/2013 - 09/22/2014 UHR HERNIA MESH REMOVAL 09/23/2017 - 09/22/2018 Medical History Medical History Date Comments Hypertension Hypertension Hx Other Medical Atrial Flutter Hx Other Medical Mitral Valve Pr olapse Abnormal cardiovascular stress test Coronary artery disease Family History Medical History Relation Name Comments Heart attack Brother 2 Myocardial Infa rction; Coronary artery disease Father Warren nary Artery Disease; Heart disease Father Mitral valve prolapse Mother Stroke Mother Relation Name Status Comments Brother 1 Alive Brother 2 Father Mother Social History Tobacco Use Types [...] on file 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 Gender Identity Not on file Sexual Orientation Not on file Obstetrics History Last Filed Vital Signs Vital Sign Reading [...] 02/12/2023 10:51 AM CDT Plan of Treatment Health Maintenance Due Date Last Done Comments Colon Cancer Screening-Colonoscopy 1955 Depression Screening 1955 Hepatitis C Screening 1955 Prostate Cancer Screening-PSA 1955 DTaP/Tdap/Td Vaccine (1 - Tdap) 1966 Hepatitis B Screening 1973 Pneumococcal vaccine 65+ (1 of 1 - PCV) 2005 Zoster Vaccine (1 of 2) 2005 Abdominal Aortic Aneurysm (A AA) Screen 2020 Well Visit 65+ 2020 Fall Risk Assessment 02/14/2024 02/13/2023 Covid-19 Vaccine (6 - 2023-2 5 season) 2024 05/29/2022, 12/21/2021, 05/21/2021, Additional history exists Influenza Vaccine (Season Ended) 2025 05/29/2022, 05/21/2021, 06/02/2020, Additional history exists Insurance [employer] [facility] MEDICAID MEDICARE MEDICARE [place] MEDICARE [facility] Advance Directives For more information, please contact: [phone] * Full Code (Latest Code Status on File) Date Activated Date Inactivated Comments 09/05/2022 9:02 AM 09/06/2022 6:16 PM Care Teams Mail Clerk Relationship Specialty Start Date End Date Jae Macdonald MD [address] [place] [id number] PCP - General Gastroenterology 09/03/22 Main Vanessa MD [address] [place] [address] Consulting Physician Cardiovascular Disease 09/06/22 Stephanie Angela MD [address] [place] [address] Consulting Physician Cardiology 02/13/23
[2025-02-04 11:37] LABS: Basophils Absolute Auto 0.1 K/mm3 (0.0-0.1); Basophils Percent Auto 0.8 % (0.2-1.2); Eosinophils Absolute Auto 0.3 K/mm3 (0-0.3); Eosinophils Percent Auto 2.9 % (0-4.4); Hematocrit 45.4 % (42.0-52.0); Hemoglobin 15.4 g/dL (14.0-18.0); Immature Granulocyte Absolute 0.02 K/mm3 (0.00-0.031); Immature Granulocyte Percent A 0.2 % (0-0.5); Lymphocytes Absolute Auto 3.23 K/mm3 (0.9-3.2); Mean Corpuscular HGB Conc 33.9 g/dl (32-36); Mean Corpuscular Hemoglobin 33.6 pg (26-34); Mean Corpuscular Volume 98.9 fl (80-100); Mean Platelet Volume 9.7 fl (7.4-10.4); Monocytes Absolute Auto 0.7 K/mm3 (0.1-0.6); Monocytes Percent Auto 7.8 % (2.6-8.5); Neutrophils Absolute Auto 4.3 K/mm3 (1.3-6.7); Neutrophils Percent Auto 50.3 % (45.5-73.1); Platelet Count Result 175 k/mm3 (150-375); Red Blood Count 4.59 M/mm3 (4.6-6.20); Red Cell Distribution Width 11.9 % (11.5-14.5); White Blood Count 8.5 K/mm3 (4.5-10.0)
[2025-02-04 12:28] LABS: Erythrocyte Sedimentation Rate 42 mm/hr (0-20)
[2025-02-04 13:50] LABS: Iron 123 ug/dL (49-181)
[2025-02-04 14:01] LABS: Percent Iron Saturation 36 % (20-50)
[2025-02-04 14:15] LABS: Alanine Aminotransferase 41 U/L (6-50); Albumin Level 4.7 g/dL (3.5-5.1); Alkaline Phosphatase 83 U/L (38-126); Anion Gap 8 mmol/L (4-12); Aspartate Amino Transferase 53 U/L (17-59); Bilirubin,Total 0.9 mg/dL (0.2-1.3); Blood Urea Nitrogen 30 mg/dL (9-20); CRP < 0.5 mg/dL (<1.0); Calcium 9.1 mg/dL (8.4-10.2); Carbon Dioxide 26 mmol/L (22-30); Chloride 104 mmol/L (98-107); Estimated Glomerular Filt Rate 57; Glucose 103 mg/dL (65-110); Lactate Dehydrogenase 260 U/L (120-246); Potassium 4.3 mmol/L (3.4-5.0); Sodium 138 mmol/L (137-145)
[2025-02-04 17:08] LABS: Folic Acid > 20.0 ng/mL (2.76->20)
[2025-02-07 09:09] LABS: Methylmalonic Acid 94 nmol/L (69-390)
[2025-02-08 13:59] LABS: Soluble Transferrin Receptor 0.92 mg/L (0.76-1.76)
== END 2025-02-04 11:01 | disposition home or self-care (01) ==
PROVIDERS: Visit Provider Internal Medicine Hematology & Oncology
DX: D72.829 Elevated white blood cell count, unspecified (principal); D64.9 Anemia, unspecified
CPT/HCPCS: 36415; 80053; 82607; 82728; 82746; 83540; 83550; 83615; 83921; 84238; 85025; 85652; 86140; 88184

== ENCOUNTER 2025-06-23 08:57 | Outpatient (CLI) | payer MEDICARE, SELFPAY ==
[2025-06-23 09:10] LABS: Hematocrit 45.8 % (42.0-52.0); Hemoglobin 15.0 g/dL (14.0-18.0); Immature Granulocyte Percent A 0.2 % (0-0.5); Lymphocytes Absolute Auto 2.96 K/mm3 (0.9-3.2); Mean Corpuscular HGB Conc 32.8 g/dl (32-36); Mean Corpuscular Hemoglobin 33.3 pg (26-34); Mean Corpuscular Volume 101.8 fl (80-100); Nucleated Red Blood Cells Absolute Auto 0.000 K/mm3 (0.0-0.012); Nucleated Red Blood Cells Perc 0.0 % (0.0-0.2); Platelet Count Result 172 k/mm3 (150-375); Red Blood Count 4.50 M/mm3 (4.6-6.20); White Blood Count 8.8 K/mm3 (4.5-10.0)
--- OUTSIDE RECORDS SUMMARY | 2025-06-23 09:23 | XMS_ITS | Clinical Summary ---
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 Gender Identity Not on file Sexual Orientation [...] Assessment 02/14/2024 02/13/2023 Covid-19 Vaccine (6 - 2024-2 6 season) 2025 05/29/2022, 12/21/2021, 05/21/2021, Additional history exists Influenza Vaccine (#1) 2025 , 05/21/2021, 06/02/2020, Additional history exists Insurance [employer] [facility] MEDICAID MEDICARE [place] [address] [facility] Advance Directives For more information, please contact: [phone] * Full Code (Latest Code Status on File) Date Activated Date Inactivated Comments 09/05/2022 9:02 AM 09/06/2022 6:16 PM Care Teams Conduit Installer Relationship Specialty Start Date End Date Jae Macdonald MD [address] [place] [id number] PCP - General Gastroenterology 09/03/22 Main Vanessa MD [address] [place] [address] Consulting Physician Cardiovascular Disease 09/06/22 Stephanie Angela MD [address] [place] [address] Consulting Physician Cardiology 02/13/23
--- OUTSIDE RECORDS SUMMARY | 2025-06-23 09:23 | XMS_ITS | Data Portability ---
Author Organization [facility] Address [address] [place] [address] Care Team Providers Care Pillowcase Maker Name Role Phone ILAN VANESSA Hourly Caregiver SANTO BARTON Coal Weigher ALEJA DERMATOLOGY [employer] English Teacher ROSA NIETO Hourly Caregiver [phone] Assessment No assessment recorded. Plan of Treatment Reminders Order Date Submit Date Provider Last Modified By Organization Details Last Modified Time Details Appointments ANY 15 2025 09:15A Silver Ott MD Not available Not available Not available ANY 15 2025 09:15A Silver Kidd MD Not available Not available Not available Lab lipid panel, serum 2024 025 [facility], [facility] [place], [address], [place], [address], 05/21/2025 13:11:53 microalb umin/cre atinine, mass ratio, urine 2024 025 [facility], [address] [facility], [address], [place], [address], 05/21/2025 13:11:52 TSH, ultra-se nsitive, serum 2024 025 [facility], [address] [facility], [address], [place], [address], 05/21/2025 13:11:56 CBC w/ auto diff 2024 025 [facility], [address] [facility], [address], [place], [address], 05/21/2025 13:11:57 CMP, serum or plasma 2024 025 [facility], [address] [facility], [address], [place], [address], 05/21/2025 13:11:55 CBC 2024 025 [email or web address] [address], [place], [address], 11/20/2024 12:25:29 CMP, serum or plasma 2024 025 [facility] [address], [place], [address], 11/20/2024 20:43:25 Referral None recorded . Procedures colonosc opy procedur e (PROC) - If patient is on blood thinner less than 6 month, clearanc e is required by prescrib ing provider . If patient is on blood thinner over 6 months, blood thinner is supposed to stopped 5 days prior to procedur e. Pacemake r or defibril lator?: N Prep (Colonos copy Procedur e): PEG 3350, Go Lytely, Colyte or Gavalyte G, dependin g on insuranc e coverage If patient has had coronary / vascular stent, provide date: No If patient has had heart attack or stroke, provide date: No Has patient ever had problems with anesthes ia or sedation ?: No Has patient had problems with opening mouth or breathin g tubes?: No Does patient use a wheelcha ir?: N 2024 025 [email or web address] [address], [place], [address], 05/20/2025 12:22:36 Surgeries None recorded . Imaging None recorded . Medication Orders Vascepa 1 gram capsule 2024 [facility] #[id number], [address], [place], [id number], 12/22/2024 12:03:12 Dulcolax (bisacod yl) 5 mg tablet,d elayed release 2024 025 [facility] #[id number], [address], [place], [id number], 12/22/2024 11:20:54 Miralax 17 gram/dos e oral powder 2024 025 [facility] #[id number], [address], [place], [id number], 12/22/2024 11:20:42 Patient TargetsNo targets recorded. Patient Instructions Encounter Date Encounter Id Patient Instructions Last Modified By Organization Details Last Modified Time 11/12/2024 [id number] learning about high blood pressure [email or web address] Not available 11/12/2024 11:51:39 high cholesterol: care instructions Not available 11/12/2024 11:51:39 11/20/2024 [id number] RL [facility] Not available 11/20/2024 12:01:18 05/20/2025 [id number] learning about high blood pressure oajao Not available 05/20/2025 12:56:[address] Vanessa Most recent lab results from Dr [facility] Follow up in 5-6 months for the MAWV oajao Not available 05/20/2025 13:21:52 Reason for Referral None Reported. Results Created Date Observation Date Name Description Value Unit Range Abnormal Flag Note LastModifiedBy Organization Detail LastModifiedTime 10/14/19 25 10/15/2024 LIPID PANEL cholesterol, total 94 mg/dL 100-19 9 below low normal Not Available [facility] ([facility]) [address], [place], [address], 10/15/2024 06:19:40 10/14/19 25 10/15/2024 LIPID PANEL triglyceride s 304 mg/dL 0-149 above high normal Not Available [facility] ([facility]) [address] [place], [address], 10/15/2024 06:19:40 10/14/19 25 10/15/2024 LIPID PANEL HDL cholesterol 7 mg/dL >39 below low normal Not Available [facility] ([facility]) [address] [place], [address], 10/15/2024 06:19:40 10/14/19 25 10/15/2024 LIPID PANEL VLDL cholesterol ricardo 47 mg/dL 5-40 above high normal Not Available [facility] ([facility]) [address] [place], [address], 10/15/2024 06:19:40 10/14/19 25 10/15/2024 LIPID PANEL LDL chol [facility] 40 mg/dL 0-99 Not Available [facility] ([facility]) [address] [place] [place], [address], 10/15/2024 06:19:40 10/14/19 25 10/15/2024 VITAM IN B12 AND FOLAT E vitamin B12 634 pg/mL 232-12 45 Not Available [facility] ([facility]) [address] [place], [address], 10/15/2024 06:19:41 10/14/19 25 10/15/2024 VITAM IN B12 AND FOLAT E folate (folic acid), serum 15.5 NG/mL >3.0 A serum folat e tahir ntrat ion of less than 3.1 ng/mL is consi dered to repre sent clini ricardo defic iency . Not Available [facility] ([facility]) [address] [place], [address], 10/15/2024 06:19:41 10/14/19 25 10/15/2024 FE+TI BC+FE R iron bind.cap.(TI BC) 253 ug/dL 250-45 0 Not Available [facility] ([facility]) [address] [place], [address], 10/15/2024 06:19:42 10/14/19 25 10/15/2024 FE+TI BC+FE R UIBC 149 ug/dL 111-34 3 Not Available [facility] ([facility]) [address] [place], [address], 10/15/2024 06:19:42 10/14/1910/15/2024 FE+TI BC+FE R iron 104 ug/dL 38-169 Not Available [facility] ([facility]) [address] [place], [address], 10/15/2024 06:19:42 10/14/19 25 10/15/2024 FE+TI BC+FE R iron saturation 41 % 15-55 Not Available [facility] ([facility]) [address] [place], [address], 10/15/2024 06:19:42 10/14/19 25 10/15/2024 FE+TI BC+FE R ferritin 1391 NG/mL 30-400 above high normal Not Available [facility] ([facility]) [address] [place], [address], 10/15/2024 06:19:42 10/14/19 25 10/17/2024 VITAM IN B1 (THIA MINE) , BLOOD vit. B1, whole blood 117.2 nmol/ L 66.5-2 00.0 Not Available [facility] ([facility]) [address] [place], [address], 10/18/2024 06:44:31 11/20/19 25 11/20/2024 COMPR EHENS RAHEEM METAB OLIC PANEL sodium 138 mmol/ L 134-14 4 normal Not Available [facility] (Lab) [address] [place], [address], 11/20/2024 20:43:25 11/20/19 25 11/20/2024 COMPR EHENS RAHEEM METAB OLIC PANEL potassium 4.0 mmol/ L 3.5-5. 2 Not Available [facility] (Lab) [address] [place], [address], 11/20/2024 20:43:25 11/20/19 25 11/20/2024 COMPR EHENS RAHEEM METAB OLIC PANEL chloride 103 mmol/ L 96-106 normal Not Available [facility] (Lab) [address] [place], [address], 11/20/2024 20:43:25 11/20/19 25 11/20/2024 COMPR EHENS RAHEEM METAB OLIC PANEL carbon dioxide 29 mmol/ L 20-29 normal Not Available [facility] (Lab) [address] [place], [address], 11/20/2024 20:43:25 11/20/19 25 11/20/2024 COMPR EHENS RAHEEM METAB OLIC PANEL anion gap 11.0 mmol/ L Not Available [facility] (Lab) [address], [place], [address], 11/20/2024 20:43:25 11/20/19 25 11/20/2024 COMPR EHENS RAHEEM METAB OLIC PANEL blood urea nitrogen 24 mg/dL 8-27 normal Not Available [facility] ([facility]) [address] [place], [address], 11/20/2024 20:43:25 11/20/19 25 11/20/2024 COMPR EHENS RAHEEM METAB OLIC PANEL creatinine 0.96 mg/dL 0.76-1 .27 normal Not Available [facility] (Lab) [address] [place], [address], 11/20/2024 20:43:25 11/20/19 25 11/20/2024 COMPR EHENS RAHEEM METAB OLIC PANEL glomerular filtration rate 86 mL/mi n/1 Not Available [facility] (Lab) [address] [place], [address], 11/20/2024 20:43:25 11/20/19 25 11/20/2024 COMPR EHENS RAHEEM METAB OLIC PANEL BUN creatinine ratio 24 10-24 normal Not Available [facility] (Lab) [address] [place], [address], 11/20/2024 20:43:25 11/20/19 25 11/20/2024 COMPR EHENS RAHEEM METAB OLIC PANEL glucose 106 mg/dL 70-99 high Not Available [facility] (Lab) [address] [place], [address], 11/20/2024 20:43:25 11/20/19 25 11/20/2024 COMPR EHENS RAHEEM METAB OLIC PANEL osmolality calculated 280 280-30 1 normal Not Available [facility] (Lab) [address] [place], [address], 11/20/2024 20:43:25 11/20/19 25 11/20/2024 COMPR EHENS RAHEEM METAB OLIC PANEL calcium 9.2 mg/dL 8.6-10 .2 normal Not Available [facility] (Lab) [address] [place], [address], 11/20/2024 20:43:25 11/20/19 25 11/20/2024 COMPR EHENS RAHEEM METAB OLIC PANEL bilirubin total 0.3 mg/dL 0.0-1. 2 normal Not Available [facility] (Lab) [address] [place], [address], 11/20/2024 20:43:25 11/20/19 25 11/20/2024 COMPR EHENS RAHEEM METAB OLIC PANEL AST aspartate aminotransfe rase 29 IU/L 0-40 normal Not Available [facility] (Lab) [address] [place], [address], 11/20/2024 20:43:25 11/20/19 25 11/20/2024 COMPR EHENS RAHEEM METAB OLIC PANEL ALT (alanine aminotransfe rase) 26 IU/L 0-44 normal Not Available [facility] (Lab) [address], [place], [address], 11/20/2024 20:43:25 11/20/19 25 11/20/2024 COMPR EHENS RAHEEM METAB OLIC PANEL total protein 8.1 g/dL 6.0-8. 5 normal Not Available [facility] (Lab) [address] [place], [address], 11/20/2024 20:43:25 11/20/19 25 11/20/2024 COMPR EHENS RAHEEM METAB OLIC PANEL albumin level 4.0 g/dL 3.9-4. 9 normal Not Available [facility] (Lab) [address], [place], [address], 11/20/2024 20:43:25 11/20/19 25 11/20/2024 COMPR EHENS RAHEEM METAB OLIC PANEL globulin 4.1 g/dL 1.5-4. 5 normal Not Available [facility] (Lab) [address], [place], [address], 11/20/2024 20:43:25 11/20/19 25 11/20/2024 COMPR EHENS RAHEEM METAB OLIC PANEL albumin globulin ratio 1.0 1.2-2. 2 low Not Available [facility] (Lab) [address] [place], [address], 11/20/2024 20:43:25 11/20/19 25 11/20/2024 COMPR EHENS RAHEEM METAB OLIC PANEL alkaline phosphatase 79 IU/L 44-121 normal Not Available [facility] (Lab) [address] [place], [address], 11/20/2024 20:43:25 05/20/20 25 05/21/2025 ALBUM IN/CR EAT RATIO , LUIS FELIPE Sheppard UR creatinine, urine 213.0 mg/dL notest ab. Not Available [facility] ([facility]) [address] [place], [address], 05/21/2025 13:11:52 05/20/20 25 05/21/2025 ALBUM IN/CR EAT RATIO , LUIS FELIPE Sheppard UR albumin, urine 73.5 ug/mL notest ab. Not Available [facility] ([facility]) [address], [place], [address], 05/21/2025 13:11:52 05/20/2005/21/2025 ALBUM IN/CR EAT RATIO , JADAO M UR alb/creat ratio 35 mg/g_ creat 0-29 above high normal Haydee l: 0 - 29 Moder ately incre ased: 30 - 300 Sever michelet incre ased: >300 Not Available [facility] ([facility]) [address] [place], [address], 05/21/2025 13:11:52 05/20/20 25 05/21/2025 LIPID PANEL cholesterol, total 57 mg/dL 100-19 9 below low normal Not Available [facility] ([facility]) [address] [place], [address], 05/21/2025 13:11:53 05/20/20 25 05/21/2025 LIPID PANEL triglyceride s 106 mg/dL 0-149 Not Available [facility] ([facility]) [address] [place], [address], 05/21/2025 13:11:53 05/20/20 25 05/21/2025 LIPID PANEL HDL cholesterol 14 mg/dL >39 below low normal Not Available [facility] ([facility]) [address] [place], [address], 05/21/2025 13:11:53 05/20/20 25 05/21/2025 LIPID PANEL VLDL cholesterol ricardo 21 mg/dL 5-40 Not Available [facility] ([facility]) [address], [place], [address], 05/21/2025 13:11:53 05/20/20 25 05/21/2025 LIPID PANEL LDL chol calc [facility] 22 mg/dL 0-99 Not Available [facility] ([facility]) [address], [place], [address], 05/21/2025 13:11:53 05/20/20 25 05/21/2025 CMP14 +EGFR glucose 95 mg/dL 70-99 Not Available [facility] ([facility]) [address], [place], [address], 05/21/2025 13:11:54 05/20/20 25 05/21/2025 CMP14 +EGFR BUN 19 mg/dL 8-27 Not Available [facility] ([facility]) [address] [facility], [place], [address], 05/21/2025 13:11:54 05/20/20 25 05/21/2025 CMP14 +EGFR creatinine 1.07 mg/dL 0.76-1 .27 Not Available [facility] ([facility]) [address] [facility] [facility] [address], [place], [address], 05/21/2025 13:11:54 05/20/20 25 05/21/2025 CMP14 +EGFR eGFR 75 mL/mi n/1.7 3 >59 Not Available [facility] ([facility]) [address] [facility] [facility] [address], [place], [address], 05/21/2025 13:11:54 05/20/20 25 05/21/2025 CMP14 +EGFR BUN/creatini ne ratio 18 10-24 Not Available [facility] ([facility]) [address] [facility] [facility] [address], [place], [address], 05/21/2025 13:11:54 05/20/20 25 05/21/2025 CMP14 +EGFR sodium 138 mmol/ L 134-14 4 Not Available [facility] ([facility]) [address] [place], [address], 05/21/2025 13:11:54 05/20/20 25 05/21/2025 CMP14 +EGFR potassium 4.5 mmol/ L 3.5-5. 2 Not Available [facility] ([facility]) [address] [place], [address], 05/21/2025 13:11:54 05/20/20 25 05/21/2025 CMP14 +EGFR chloride 100 mmol/ L 96-106 Not Available [facility] ([facility]) [address] [place], [address], 05/21/2025 13:11:54 05/20/20 25 05/21/2025 CMP14 +EGFR carbon dioxide, total 24 mmol/ L 20- Not Available [facility] ([facility]) [address] [place], [address], 05/21/2025 13:11:54 05/20/20 25 05/21/2025 CMP14 +EGFR calcium 9.2 mg/dL 8.6-10 .2 Not Available [facility] ([facility]) [address] [place], [address], 05/21/2025 13:11:54 05/20/2005/21/2025 CMP14 +EGFR protein, total 7.8 g/dL 6.0-8. 5 Not Available [facility] ([facility]) [address] [place], [address], 05/21/2025 13:11:54 05/20/20 25 05/21/2025 CMP14 +EGFR albumin 4.3 g/dL 3.9-4. 9 Not Available [facility] ([facility]) [address] [place], [address], 05/21/2025 13:11:54 05/20/20 25 05/21/2025 CMP14 +EGFR globulin, total 3.5 g/dL 1.5-4. 5 Not Available [facility] ([facility]) [address] [facility], [place], [address], 05/21/2025 13:11:54 05/20/20 25 05/21/2025 CMP14 +EGFR bilirubin, total 0.7 mg/dL 0.0-1. 2 Not Available [facility] ([facility]) [address] [facility] [address], [place], [address], 05/21/2025 13:11:54 05/20/20 25 05/21/2025 CMP14 +EGFR alkaline phosphatase 81 IU/L 44-121 Not Available [facility] ([facility]) [address], [place], [address], 05/21/2025 13:11:54 05/20/20 25 05/21/2025 CMP14 +EGFR AST (SGOT) 32 IU/L 0-40 Not Available [facility] ([facility]) [address] [facility] [facility] [address], [place], [address], 05/21/2025 13:11:54 05/20/20 25 05/21/2025 CMP14 +EGFR ALT (SGPT) 43 IU/L 0-44 Not Available [facility] ([facility]) [address] [facility] [facility] [address], [place], [address], 05/21/2025 13:11:54 05/20/20 25 05/21/2025 TSH TSH 0.800 uIU/m L 0.450- 4.500 Not Available [facility] ([facility]) [address] [place], [address], 05/21/2025 13:11:56 05/20/20 25 05/21/2025 CBC WITH DIFFE RENTI AL/PL ATELE T WBC 9.1 x10e3 /uL 3.4-10 .8 Not Available [facility] ([facility]) [address] [facility] [facility] [address], [place], [address], 05/21/2025 13:11:57 05/20/20 25 05/21/2025 CBC WITH DIFFE RENTI AL/PL ATELE T RBC 4.40 x10e6 /uL 4.14-5 .80 Not Available [facility] ([facility]) [address] [facility] [address], [place], [address], 05/21/2025 13:11:57 05/20/20 25 05/21/2025 CBC WITH DIFFE RENTI AL/PL ATELE T hemoglobin 15.3 g/dL 13.0-1 7.7 Not Available [facility] ([facility]) [address] [facility] [address], [place], [address], 05/21/2025 13:11:57 05/20/20 25 05/21/2025 CBC WITH DIFFE RENTI AL/PL ATELE T hematocrit 46.1 % 37.5-5 1.0 Not Available [facility] ([facility]) [address] [place], [address], 05/21/2025 13:11:57 05/20/20 25 05/21/2025 CBC WITH DIFFE RENTI AL/PL ATELE T MCV 105 fL 79-97 above high normal Not Available [facility] ([facility]) [address] [place], [address], 05/21/2025 13:11:57 05/20/20 25 05/21/2025 CBC WITH DIFFE RENTI AL/PL ATELE T MCH 34.8 pg 26.6-3 3.0 above high normal Not Available [facility] ([facility]) [address] [place], [address], 05/21/2025 13:11:57 05/20/20 25 05/21/2025 CBC WITH DIFFE RENTI AL/PL ATELE T MCHC 33.2 g/dL 31.5-3 5.7 Not Available [facility] ([facility]) [address] [facility] [facility] [address], [place], [address], 05/21/2025 13:11:57 05/20/20 25 05/21/2025 CBC WITH DIFFE RENTI AL/PL ATELE T RDW 12.1 % 11.6-1 5.4 Not Available [facility] ([facility]) [address] [facility], [place], [address], 05/21/2025 13:11:57 05/20/20 25 05/21/2025 CBC WITH DIFFE RENTI AL/PL ATELE T platelets 185 x10e3 /uL 150-45 0 Not Available [facility] ([facility]) [address] [facility], [place], [address], 05/21/2025 13:11:57 05/20/20 25 05/21/2025 CBC WITH DIFFE RENTI AL/PL ATELE T neutrophils 61 % notest ab. Not Available [facility] ([facility]) [address] [facility] [address], [place], [address], 05/21/2025 13:11:57 05/20/20 25 05/21/2025 CBC WITH DIFFE RENTI AL/PL ATELE T lymphs 27 % notest ab. Not Available [facility] ([facility]) [address] [facility] [address], [place], [address], 05/21/2025 13:11:57 05/20/20 25 05/21/2025 CBC WITH DIFFE RENTI AL/PL ATELE T monocytes 9 % notest ab. Not Available [facility] ([facility]) [address] [place], [address], 05/21/2025 13:11:57 05/20/20 25 05/21/2025 CBC WITH DIFFE RENTI AL/PL ATELE T eos 2 % notest ab. Not Available [facility] ([facility]) [address] [place], [address], 05/21/2025 13:11:57 05/20/20 25 05/21/2025 CBC WITH DIFFE RENTI AL/PL ATELE T basos 1 % notest ab. Not Available [facility] ([facility]) [address] [facility], [place], [address], 05/21/2025 13:11:57 05/20/20 25 05/21/2025 CBC WITH DIFFE RENTI AL/PL ATELE T neutrophils (absolute) 5.5 x10e3 /uL 1.4-7. 0 Not Available [facility] ([facility]) [address] [facility] [address], [place], [address], 05/21/2025 13:11:57 05/20/20 25 05/21/2025 CBC WITH DIFFE RENTI AL/PL ATELE T lymphs (absolute) 2.5 x10e3 /uL 0.7-3. 1 Not Available [facility] ([facility]) [address] [facility] [address], [place], [address], 05/21/2025 13:11:57 05/20/20 25 05/21/2025 CBC WITH DIFFE RENTI AL/PL ATELE T monocytes(ab solute) 0.8 x10e3 /uL 0.1-0. 9 Not Available [facility] ([facility]) [address] [facility] [address], [place], [address], 05/21/2025 13:11:57 05/20/20 25 05/21/2025 CBC WITH DIFFE RENTI AL/PL ATELE T eos (absolute) 0.2 x10e3 /uL 0.0-0. 4 Not Available [facility] ([facility]) [address] [facility] [address], [place], [address], 05/21/2025 13:11:57 05/20/20 25 05/21/2025 CBC WITH DIFFE RENTI AL/PL ATELE T baso (absolute) 0.1 x10e3 /uL 0.0-0. 2 Not Available [facility] ([facility]) [address] [facility] [facility] [address], [place], [address], 05/21/2025 13:11:57 05/20/20 25 05/21/2025 CBC WITH DIFFE RENTI AL/PL ATELE T immature granulocytes 0 % notest ab. Not Available [facility] ([facility]) [address] [facility], [place], [address], 05/21/2025 13:11:57 05/20/20 25 05/21/2025 CBC WITH DIFFE RENTI AL/PL ATELE T immature grans (abs) 0.0 x10e3 /uL 0.0-0. 1 Not Available [facility] ([facility]) [address] [facility], [place], [address], 05/21/2025 13:11:57 Result Notes None recorded. Problems Name Problem SNOMED Code Status Onset Date Resolution Date Notes Provider Name and Address Organization Details Recorded Time Byron cooper hyperten any 72083901 Active 2017 Not Available [facility] 3 22:33:39 History of polyp of colon 695243955 Active 2017 Not Available [facility] 3 22:33:39 History of atrial flutter 879321863 Active 2017 Not Available [facility] 3 22:33:39 Lower urinary tract symptoms 867029976 Active 2017 Slow urinary flow Not Available [facility] 3 22:33:39 History of urethral strictur e 487421362 Active 2017 Not Available [facility] 3 22:33:39 Hepatiti s C virus detected by enzyme-l inked immunoso rbent assay [id number] Completed 201710/29/2018 Removal Reason: Confirma tory assay negative Jae Macdonald MD Attn: Accounting ,[address], [place], [address] , [facility] 11:35:16 Screenin g for malignan t neoplasm of prostate Active 2017 Not Available [facility] 3 22:33:39 Hyperlip idemia 33094968 Active 2018 Not Available [facility] 3 22:33:39 Hypergly cemia 57328324 Active 2018 Not Available [facility] 3 22:33:39 Divertic ular disease 274996951 Active 2018 Not Available [facility] 3 22:33:39 History of repair of mitral valve 848677688 Active 2018 Not Available [facility] 3 22:33:39 Gastroes ophageal reflux disease without esophagi tis 620219332 Active 2018 Not Available [facility] 3 22:33:39 Active immuniza tion Active 2018 Not Available [facility] 3 22:33:39 Cardiova scular stress test abnormal 463773450 Active 2019 Not Available [facility] 3 22:33:39 Injury of right shoulder 56549625619 781346 Active 2021 Not Available [facility] 3 22:33:39 Chronic atrial fibrilla tion 768154683 Active 2021 Not Available [facility] 3 22:33:39 Cardiac arrhythm ia 641522212 Active 2022 Not Available [facility] 3 22:33:39 Bradycar amarjit 81519929 Active 2022 Not Available [facility] 3 22:33:39 Disorder of skin 86715785 Active 2023 Jae Macdonald MD Attn: Accounting ,[address] [place], [address] , [facility] 4 05:49:08 Blood in urine [id number] Active 2023 Jae Macdonald MD Attn: Accounting ,[address] [place], [address] , [place] [facility] 10:54:04 Anemia 010050229 Active 2024 Jae Macdonald MD Attn: Accounting ,[address], [place], [address] , [facility] 02:36:12 Hypertri glycerid emia 568616364 Active 2024 Siva Ott MD Attn: Accounting ,[address], [place], [address] , [facility] 12:52:00 Problem Notes None recorded. Procedures Surgical History Date Name Laterality Status Provider Name and Address Organization Details Recorded Time 12/04/19 25 screening colonoscopy completed Siva Ott MD Attn: Accounting,[address], [place], [address], [facility] 05/20/2025 12:33:29 09/23/19 18 repair of umbilical hernia completed Siva Ott MD Attn: Accounting,[address] [facility], [place], [address], [facility] 05/20/2025 12:43:09 09/23/19 08 mitral valvuloplasty completed Sebastien Rico, [address] [place], [address], [facility] 11/19/2018 15:45:46 Imaging Results None recorded. Procedure Notes None recorded. Medical Equipment None Reported. Allergies No known drug allergies Medications Name Sig Start Date Stop Date Status Note LastModified by Organization Details LastModified Time amoxicilli n 500 mg capsule TAKE 1 CAPSULE BY MOUTH THREE TIMES DAILY UNTIL ALL TAKEN 05/20 completed Not Available Not Available Not Available atorvastat in 80 mg tablet TAKE 1 TABLET BY MOUTH EVERY DAY DIRECTED active Not Available Not Available No t Available clindamyci n HCl 300 mg capsule TAKE 1 CAPSULE BY MOUTH THREE TIMES DAILY FOR 10 DAYS 05/20 completed Not Available Not Available Not Available aspirin 325 mg tablet Take 1 [...] completed Not Available Not Available Not Available aspirin 81 mg tablet Take 1 tablet every day by oral route. active Not Available Not Available No t Available lisinopril 5 mg tablet TAKE 1 TABLET BY MOUTH EVERY DAY 05/20 completed haven't been taking Not Available Not Available Not Available mupirocin 2 % topical ointment 11/19 completed Not Available Not Available Not Available polyethyle ne glycol 3350 17 gram/dose oral powder In a pitcher, mix entire bottle of Miralax in one 64 ounce bottle of yellow or green Gatorade . Beginnin g at 5:00 PM the evening before the colonosc opy, drink 1 8-ounce glass every 15 minutes until complete d. Drink 4 glasses of water after finishin g this mixture 12/22 completed Not Available Not Available Not [...] 1 TABLET BY MOUTH EVERY DAY active Not Available Not Available No t Available omega-3 acid ethyl esters 1 gram capsule [...] Not Available Not Available No t Available icosapent ethyl 1 gram capsule TAKE 2 CAPSULES BY MOUTH TWICE DAILY active Not Available Not Available No t Available Afluria Quad 5760-3057 (PF) 60 mcg (15 mcg x 4)/0.5 mL IM syringe 11/19 completed Not Available Not Available Not Available Afluria Qd 2019- (36 mos up)(PF)60 mcg (15 mcg x4)/0.5 mL IM syringe 08/15 completed Not Available Not Available Not Available Vitals Date Recorded Body height Body mass index (BMI) Body weight Heart rate Oxygen saturation Oxygen saturation in Arterial blood by Pulse oximetry Systolic And Diastolic Provider Name and Address Organization Details Last Updated DateTime 5 182.88 cm 24.1 kg/m2 52335.5 9 g 62 /min 99 % 99 % 130/79 mm[Hg] Hector Morrison MA [facility] 5 11:20:21 Date Recorded Body height Body mass index (BMI) Body weight Body temperature Heart rate Oxygen saturation Oxygen saturation in Arterial blood by Pulse oximetry Respiratory rate Systolic And Diastolic Provider Name and Address Organization Details Last Updated DateTime 5 182.88 cm 25.2 kg/m2 55459.1 8 g 98 [degF] 60 /min 96 % 96 % 18 /min 113/64 mm[Hg] Alena blair MA [facility] 5 11:49:37 Date Recorded Body height Body mass index (BMI) Body weight Heart rate Oxygen saturation Oxygen saturation in Arterial blood by Pulse oximetry Systolic And Diastolic Provider Name and Address Organization Details Last Updated DateTime 5 182.88 cm 24.7 kg/m2 53062.1 g 61 /min 98 % 98 % 114/62 mm[Hg] Hector Morrison MA [facility] 5 11:24:57 Date Recorded Body height Body mass index (BMI) Body weight Heart rate Body temperature Pain severity - 0-10 verbal numeric rating [Score] - Reported Systolic And Diastolic Provider Name and Address Organization Details Last Updated DateTime 5 182.88 cm 25.2 kg/m2 99894.7 4 g 70 /min 98.1 [degF] 0 129/61 mm[Hg] Keli Eng MA [facility] 5 10:21:41 Date Recorded Body height Body mass index (BMI) Body weight Heart rate Oxygen saturation Oxygen saturation in Arterial blood by Pulse oximetry Respiratory rate Body temperature Systolic And Diastolic Provider Name and Address Organization Details Last Updated DateTime 5 182.88 cm 24 kg/m2 33010.8 5 g 64 /min 98 % 98 % 14 /min 97.6 [degF] 126/80 mm[Hg] Christa Amaya MA [facility] 12:26:40 Social History Question Answer Notes LastModified by Organizat ion Details LastModified Time Tobacco Smoking Status Former Smoker Stopped 1974 Siva Ott MD Attn: Accounting,[address] , [place], [address], [facility] 05/20/2025 12:42:31 Do You Have An Advance Directive? No Information not available 05/16/2022 Are You Blind Or Do You Have Difficulty Seeing? No Information not available 12/02/2023 What Is Your Level Of Caffeine Consumption? Occasional Information not available 12/02/2023 In The 14 Days Before Symptom Onset, Have You Had Close Contact With A Laboratory-confir med COVID-19 While That Case Was Ill? No Information not available 05/29/2023 In The 14 Days Before Symptom Onset, Have You Had Close Contact With A Person Who Is Under Investigation For COVID-19 While That Person Was Ill? No Information not available 05/29/2023 Have You Been To An Area Known To Be High Risk For COVID-19? No Information not available 05/29/2023 Are You Deaf Or Do You Have Serious Difficulty Hearing? No Information not available 12/02/2023 What Type Of Diet Are You Following? REGULAR Information not available 12/02/2023 What Is The Highest Grade Or Level Of School You Have Completed Or The Highest Degree You Have Received? [id number] Information not available 12/02/2023 Are There Any Guns Present In Your Home? No Information not available 12/02/2023 Do You Have A Medical Power Of Customs Appraiser? No [email or web address] Information not available 05/16/2022 What Was The Date Of Your Most Recent Tobacco Screening? 05/20/2025 [email or web address] Information not available 05/20/2025 What Is Your Current Pack Years? [email or web address] Information not available 05/20/2025 What Is Your Relationship Status? Single Information not available 12/02/2023 Do You Use Your Seat Belt Or Car Seat Routinely? Yes Information not available 12/02/2023 Do You Have Smoke And Carbon Monoxide Detectors In Your Home? Yes Information not available 12/02/2023 At What Age Did You Start Smoking Tobacco? 19 Information not available 05/20/2025 How Much Tobacco Do You Smoke? 1 PPD Information not available 11/19/2018 Do You Use Sunscreen Routinely? No Information not available 12/02/2023 Has Tobacco Cessation Counseling Been Provided? No Information not available 02/20/2023 How Many Years Have You Smoked Tobacco? 10 Information not available 11/19/2018 Sex: Male Functional Status Question Answer Note LastModified by Organizat ion Details LastModified Time Do you use any illicit or recreational drugs? Yes Marijuana Information not available 05/20/2025 Do you or have you ever used any other forms of tobacco or nicotine? No Information not available 02/20/2023 What is your level of alcohol consumption? None Information not available 12/02/2023 Are you currently employed? No Information not available 12/02/2023 Are you able to care for yourself independently? Yes Information not available 12/02/2023 What is your exercise level? Occasional Information not available 12/02/2023 Mental Status Question Answer Note LastModified by Organization D etails LastModified Time Do you feel stressed (tense, restless, nervous, or anxious, or unable to sleep at night)? [id number] Information not available 12/02/2023 Family History Relationship Description Onset Age of this Age Resolved Age Notes LastModified by Organization Details LastModified Time Father Heart disease 64 [email or web address] Not available 2017 10:53:20 Father Myocardial infarction [email or web address] Not available 07/29 10:53:39 Brother Myocardial infarction [email or web address] Not available 07/29 10:53:39 Medical History Condition Response Diabetes N Coronary Artery Disease Y Atrial Fibrillation Y High Blood Pressure Y Seizures/Epilepsy N Have you had a colonoscopy in the last 1 0 years? Y Colon Cancer N Kidney Stones Y Tuberculosis N Stroke N Depression N Osteoporosis/Osteopenia N Diverticulitis/Diverticulosis N Sleep Apnea N Colon Polyps Y GERD/Reflux N High Cholesterol Y Liver Disease N Immunizations Vaccine Type Date Status Note Provider Nam e and Address Organization Details Recorded Time COVID-19, mRNA, LNP-S, PF, 100 mcg/0.5mL dose or 50 mcg/0.25mL dose 1 completed Not Available [facility] 08/13/2023 22:33:40 COVID-19, mRNA, LNP-S, PF, 100 mcg/0.5mL dose or 50 mcg/0.25mL dose 1 completed Not Available [facility] 08/13/2023 22:33:40 Influenza, split virus, quadrivalent, PF 0 completed Hector Morrison MA null, [place] - [facility] 12/22/2024 11:21:53 Influenza, split virus, trivalent, preservative 3 completed Not Available [facility] 05/20/2025 12:16:02 Influenza, split virus, trivalent, preservative 7 completed Not Available [facility] 05/20/2025 12:16:02 Influenza, split virus, quadrivalent, PF 8 completed Not Available [facility] 05/20/2025 12:16:02 Influenza, high-dose, quadrivalent, PF 1 completed Not Available [facility] 05/20/2025 12:16:02 COVID-19, mRNA, LNP-S, PF, 100 mcg/0.5mL dose or 50 mcg/0.25mL dose 1 completed Not Available [facility] 05/20/2025 12:16:02 COVID-19, mRNA, LNP-S, PF, 100 mcg/0.5mL dose or 50 mcg/0.25mL dose 2 completed Not Available [facility] 05/20/2025 12:16:02 COVID-19, mRNA, LNP-S, bivalent, PF, 50 mcg/0.5 mL or 25mcg/0.25 mL dose 2 completed Not Available [facility] 05/20/2025 12:16:02 Influenza, high-dose, quadrivalent, PF 2 completed Not Available [facility] 05/20/2025 12:16:02 COVID-19, mRNA, LNP-S, bivalent, PF, 50 mcg/0.5 mL or 25mcg/0.25 mL dose 3 completed Not Available [facility] 05/20/2025 12:16:02 Pneumococcal conjugate PCV20, polysaccharide QCU696 conjugate, adjuvant, PF 3 completed Not Available [facility] 05/20/2025 12:16:02 zoster recombinant 3 completed Not Available [facility] 05/20/2025 12:16:02 zoster recombinant 3 completed Not Available [facility] 05/20/2025 12:16:02 COVID-19, mRNA, LNP-S, PF, 50 mcg/0.5 mL 3 completed Not Available [facility] 05/20/2025 12:16:02 RSV, bivalent, protein subunit RSVpreF, diluent reconstituted, 0.5 mL, PF 3 completed Not Available [facility] 05/20/2025 12:16:02 Influenza, adjuvanted, quadrivalent, PF 3 completed Not Available [facility] 05/20/2025 12:16:02 COVID-19, mRNA, LNP-S, PF, 50 mcg/0.5 mL 4 completed Not Available [facility] 05/20/2025 12:16:02 COVID-19, mRNA, LNP-S, PF, 50 mcg/0.5 mL 4 completed Not Available [facility] 05/20/2025 12:16:02 Influenza, high-dose, trivalent, PF 4 completed Not Available [facility] 05/20/2025 12:16:02 Influenza, split virus, quadrivalent, PF 9 completed Not Available [facility] 10/10/2019 02:43:08 Tdap 3 completed Antonette Collier MA [facility] 05/23/2023 11:09:31 Past Encounters Encounter ID Performer Location Encounter Start Date Encounter Closed Date Diagnosis/Indication Diagnosis SNOMED-CT Code Diagnosis ICD10 Code Diagnosis IMO Codes Diagnosis Note [id number] Jae Macdonald MD [facility] (Adult Med) [address] [place] [phone] 0 07/29/2018 10:04:31 07/29/2018 11:53:51 Essential hypertension 13170803 I10 History of polyp of colon 571574318 Z86.010 History of atrial flutter 794947720 Z86.79 Lower urin fawn tract symptoms 363371713 R39.9 History of urethral stricture 441347617 Z87.448 Hepatitis C virus detected by enzyme-linked immunosorbent assay 844953163 R76.8 Screening for malignant neoplasm of prostate 126686861 Z12.5 [id number] Jae Macdonald MD [facility] (Adult Med) [address] [place] [address] 13541[address]128 0 10/29/2018 11:10:45 10/30/2018 10:14:24 Essential hypertension 34733359 I10 History of polyp of colon 927824943 Z86.010 Hyperglycemia 08054292 R 73.9 Hyperlipidemia 28477858 E78.5 Discussed dietary reduction of polyunsatu urated fats, simple sugars. [id number] Sebastien Rico DO [facility] [address] [place] [address] 2 11/19/2018 14:09:32 11/27/2018 10:33:09 Screening for malignant neoplasm of colon 511935920 Z12.11 Essential hypertension 77966816 I10 Hyperlipidemia 03606277 E78.5 History of polyp of colon 726153930 Z86.809 [id number] Jae Macdonald MD [facility] (Adult Med) [address] [place] [address] [phone] 0 03/30/2019 12:06:43 03/31/2019 11:23:08 Hyperglycemia 00166924 R73.9 Hyperlipidemia 80617927 E78.5 Discussed dietary reduction of polyunsatu urated fats, simple sugars. History of urethral stricture 554789044 Z87.448 Lower urin fawn tract symptoms 731967028 R39.9 Essential hypertension 03696349 I10 History of atrial flutter 171644506 Z86.79 History of polyp of colon 139380372 Z86.010 History of repair of mitral valve 628962135 Z98.820 [id number] Jose Eduardo Kidd MD [facility] [address] [place] [address] 2 05/27/2019 11:40:06 06/08/2019 11:25:05 Disorder of male genital organ 78353705 N50.9 [id number] Jose Eduardo Kidd MD [facility] [address] [place] [address] 06/17/2019 10:33:15 06/22/2019 12:44:03 Retention of urine 874177767 R33.9 [id number] Jose Eduardo Kidd MD [facility] [address] [place] [address] 07/15/2019 10:43:10 07/15/2019 14:49:19 Scrotal mass 88065583 N50.89 Incomplete emptying of urinary bladder 982810210 R39.14 some better with tamsulosin [id number] Jae Macdonald MD [facility] (Adult Med) [address] [place] [address] [id number] 0 08/31/2019 09:56:31 09/01/2019 12:15:38 Essential hypertension 39268034 I10 History of atrial flutter 345456368 Z86.79 History of repair of mitral valve 597530438 Z98.890 History of urethral stricture 271353348 Z87.448 Hyperglycemia 34931789 R 73.9 Hyperlipidemia 90022638 E78.5 Discussed dietary reduction of polyunsatu urated fats, simple sugars. 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 Lower urin fawn tract symptoms 414243721 R39.9 F/U with urologist History of polyp of colon 132017325 Z86.010 Diverticular disease 397 066408 K57.90 Essential hypertension 90491212 I10 [id number] MD Sharad Santa (Adult Med) [address] [place] [address] 15604-883 0 08/15/2020 08:31:26 08/15/2020 10:50:29 Essential hypertension 32630784 I10 History of atrial flutter 606070347 Z86.79 Cardiovasc ular stress test abnormal 703922839 R94.39 Cath pending [id number] Jose Eduardo Kidd MD [facility] [address] [place] [address]602-338 2 11/23/2020 10:29:56 11/23/2020 12:42:36 Dysfunctional voiding of urine 314879513 R39.198 Hydrocele of testis 2661 4003 N43.3 [id number] Jose Eduardo Kidd MD [facility] [address] [place] [address] 62735-606 2 04/26/2021 10:31:17 04/26/2021 11:42:55 Large prostate 835159890 N40.0 [id number] MD Sharad Santa (Adult Med) [address] [place] [address] 06384-692 0 08/21/2021 10:09:43 08/22/2021 13:09:12 Essential hypertension 48940026 I10 Hyperglycemia 87764896 R 73.9 Labs on return Hyperlipidemia 06736490 E78.5 Discussed dietary reduction of polyunsatu urated fats, simple sugars. Gastroesop hageal reflux disease without esophagitis 683177712 K21.9 [id number] MD Sharda Santa (Adult Med) [address] [place] [address]239-626 0 02/20/2022 09:50:47 02/20/2022 11:33:58 Essential hypertension 71602616 I10 Labs on return OV History of repair of mitral valve 805273948 Z98.890 Continue warfarin Hyperglycemia 51498482 R 73.9 Labs on return Diverticular disease 397 177923 K57.90 Injury of right shoulder 4690851026 0684070 S49.91XA Scheduled for surgery in two days. Will see post repair [id number] Jose Eduardo Kidd MD [facility] [address] [place] [address] 05/16/2022 10:35:55 05/16/2022 12:05:33 Large prostate 363253883 N40.0 [id number] Jae Macdonald MD [facility] (Adult Med) [address] [place] [address] 32948-153 0 08/23/2022 09:52:26 08/27/2022 09:20:28 Chronic atrial fibrillation 119262308 I48.20 Rx as per cardiology Essential hypertension 02685809 I10 Labs on return OV Diverticular disease 397 091250 K57.90 Hyperlipidemia 48219315 E78.5 Discussed dietary reduction of polyunsatu urated fats, simple sugars. Hyperglycemia 77414467 R 73.9 Labs on return Lower urin fawn tract symptoms 651161696 R39.9 F/U with urologist History of repair of mitral valve 198574541 Z98.890 Continue warfarin History of polyp of colon 405895988 Z86.010 Gastroesop hageal reflux disease without esophagitis 892673572 K21.9 [id number] [facility] [address] [place] [address] 0 02/20/2023 09:49:21 02/22/2023 09:31:01 Overweight 207167344 E66.3 Essential hypertension 36523613 I10 Labs on return OV History of atrial flutter 875039389 Z86.79 Cardiac arrhythmia 72345 7007 I49.9 Bradycardia 41435398 R00 .1 Diverticular disease 397 163645 K57.90 [id number] [facility] [address] [place] [address] 04/03/2023 10:16:11 04/12/2023 11:07:06 Kushal hematuria 241428643 R31.0 [id number] [facility] [address] [place] [address]72[address] 2 04/17/2023 09:51:18 04/18/2023 14:59:21 Nocturia 624992522 R35.1 suspect med effect -- RTO 6 weeks [id number] [facility] [address] [place] [address] 66067[address]476 0 05/23/2023 10:04:13 05/24/2023 18:19:12 Overweight 639873083 E66.3 Essential hypertension 15354020 I10 Labs on return OV Diverticular disease 397 784383 K57.90 History of polyp of colon 442354436 Z86.010 Colonoscop y due 2023 Hyperlipidemia 07888664 E78.5 Discussed dietary reduction of polyunsatu urated fats, simple sugars. Active immunization 3387 9002 Z23 [id number] Jose Eduardo Kidd MD [facility] [address] [place] [address] 36227-172 2 05/29/2023 09:48:15 05/31/2023 12:42:41 Increased frequency of urination 369025164 R35.0 [id number] Jae Macdonald MD [facility] (Adult Med) [address] [place] [address] 26193-157 0 12/02/2023 09:50:55 12/02/2023 11:39:01 Essential hypertension 87324269 I10 Labs on return OV if not done by cardiology History of repair of mitral valve 145530093 Z98.890 Continue warfarin Lower urin fawn tract symptoms 239966568 R39.9 F/U with urologist Hyperlipidemia 82561966 E78.5 Discussed dietary reduction of polyunsatu urated fats, simple sugars. Diverticular disease 397 169406 K57.90 Gastroesop hageal reflux disease without esophagitis 119016006 K21.9 Hyperglycemia 83487296 R 73.9 Labs on return OV if not done by cardiology [id number] Jose Eduardo Kidd MD [facility] [address] [place] [address] 11/27/2023 09:50:41 12/04/2023 10:41:43 Large prostate 094500261 N40.0 [id number] Jose Eduardo Kidd MD [facility] [address] [place] [address] 12/27/2023 09:57:48 12/27/2023 13:40:42 Large prostate 625136327 N40.0 [id number] Grover Quach MD [facility] [address] [place] [address] 03/06/2024 14:15:34 03/09/2024 12:32:14 Microscopic hematuria 504816175 R31.29 Patient had two self limiting episodes of hematuria. Will order renal US. repeat labs and UA. r/o nephrolith iasis. less likely kidney related Hematuria, no GN, thin membrane kidney disease less likely. Nocturia 410208063 R35.1 possible BPH. follows up with Urologist. on finasterid e and flomax. [id number] Jae Macdonald MD [facility] (Adult Med) [address] [place] [address]66[address] 0 04/02/2024 10:04:15 04/03/2024 16:17:46 Essential hypertension 55628710 I10 Labs on return OV if not done by cardiology Diverticular disease 397 578983 K57.90 Cardiac arrhythmia 80901 7007 I49.9 F/U cardiology History of polyp of colon 194262386 Z86.010 Colonoscop y due 2023 History of repair of mitral valve 004887533 Z98.890 Continue warfarin Hyperlipidemia 00673011 E78.5 Discussed dietary reduction of polyunsatu urated fats, simple sugars. Blood in urine 75793180 R31.9 F/U urology [id number] Jose Eduardo Kidd MD [facility] [address] [place] [address] 06/26/2024 10:14:20 06/26/2024 12:17:50 Heart regularly irregular 033298755 I48.20 [id number] MD Sharad Santa (Adult Med) [address] [place] [address] 46762-677 0 10/05/2024 11:15:56 10/14/2024 14:25:41 Cardiac arrhythmia 328928064 I49.9 F/U cardiology Diverticular disease 397 634773 K57.90 Essential hypertension 51920235 I10 Labs on return OV if not done by cardiology History of atrial flutter 564426862 Z86.79 History of polyp of colon 532067304 Z86.0100 History of repair of mitral valve 416105464 Z98.890 Continue warfarin Hyperlipidemia 00799880 E78.5 Discussed dietary reduction of polyunsatu urated fats, simple sugars. Screening for malignant neoplasm of prostate 370781425 Z12.5 [id number] MD Sharad Santa (Adult Med) [address] [place] [address] 92310-443 0 11/12/2024 11:01:31 11/12/2024 11:48:50 Essential hypertension 70633026 I10 Labs on return OV if not done by cardiology Cardiac arrhythmia 96257 7007 I49.9 F/U cardiology Hyperlipidemia 51430094 E78.5 Discussed dietary reduction of polyunsatu urated fats, simple sugars. Hypertriglyceridemia 302 459357 E78.2 Ezetimibe added to regimen. Pt also on OTC omega-3 fatty acid. Vascepa covered by insurance. Will recheck on return OV History of repair of mitral valve 324932163 Z98.890 Continue warfarin Diverticular disease 397 618554 K57.90 [id number] Karla Long DO [facility] [address] [place] [address] 10557-671 2 11/20/2024 11:34:28 11/20/2024 12:48:18 Screening for malignant neoplasm of colon 659145578 Z12.11 I have discussed complicate d risks of procedure with the patient I have answered all of his questions [id number] MD Sharad Santa (Adult Med) [address] [place] [address]85[address] 0 12/22/2024 11:07:50 12/25/2024 14:53:26 Body mass index 20-24 - normal 067511283 Z68.24 Diverticular disease 397 157035 K57.90 Cardiac arrhythmia 78821 7007 I49.9 F/U cardiology History of repair of mitral valve 855568039 Z98.890 Continue warfarin Hypertriglyceridemia 302 087589 E78.2 Start Vascepa [id number] Jose Eduardo Kidd MD [facility] [address] [place] [address] 12/25/2024 10:06:36 12/25/2024 10:50:41 [id number] Siva Ott MD [facility] (Adult Med) [address] [place] [address] 05/20/2025 12:15:18 05/21/2025 14:34:34 Hypertriglyceridemia 663504611 E78.1 [id number] Therapeuti c drug monitoring assay 41322430 Z51.81 697630 Adult heal th examination 833427570 Z00.01 7497366 Body mass index 20-24 - normal 410480818 Z68.24 24949353 Essential hypertension 22752422 I10 Chronic at rial fibrillation 217247448 I48.20 Health Concerns Section Related Observation LastModified by Organization Detai ls LastModified Time None Recorded Concern Status LastModified by Organization Details LastModified Time None Recorded Advance Directives Directive N: Payers Insurance Date Sequence Insurance Name Policy Number Policy Crockett Covered Member ID Crockett Member ID Guarantor Name 05/17/2025 [place] Kristopher Truong [id number] Kristopher Truong 05/17/2025 1 [place] Kristopher Truong [id number] Kristopher Truong 10/29/2018 1 [facility] (MEDICAID HMO) Kristopher Truong [id number] Kristopher Truong 08/21/2021 1 [facility] - DOS PRIOR TO 2021 (MEDICAID REPLACEMENT - HMO) Kristopher Truong [id number] Kristopher Truong 05/17/2025 2 [facility] [id number] Kristopher Truong [id number] Kristopher Truong 02/20/2023 [place] Kristopher Truong [id number] Kristopher Truong 10/05/2024 1 [place] Kristopher Truong [id number] Kristopher Truong 10/14/2024 3 [place] WHEN MEDICARE OR MEDICARE REPLACEMENT PRIMARY) Kristopher Truong [id number] Kristopher Truong Notes Date Note Type Note Provider Name and Address Organization Details Recorded Time 11/12/2024 text/html Here for regular f/u. Stopped lisinopril due to lightheadedness. Jae Macdonald MD Attn: Accounting,[address] [facility] [address], [place], [address], [facility] 11/12/2024 11:52:03 12/22/2024 text/html Here for routine f/u. Would like to start Vascepa Jae Macdonald MD Attn: Accounting[address] [place], [address], [facility] 12/22/2024 12:03:41 12/25/2024 text/html ROS as noted in the HPI On tamsulosin and finasteride feels very well has a most 1 time nocturia which does not bother him at this times. We discussed potential for prostate procedures including transurethral resection, hot water treatment, laser and others but does not want a procedure at this time. Jose Eduardo Kidd MD [address] [place], [address], [facility] 12/25/2024 10:43:27 05/20/2025 text/html ROS as noted in the HPI 69 y/o WM who is here to establish care. PMHX. 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 He has no complaints Siva Ott MD Attn: Accounting,[address] [facility], [place], [address], [facility] 05/20/2025 13:37:07
--- OUTSIDE RECORDS SUMMARY | 2025-06-23 09:23 | XMS_ITS | Clinical Summary ---
Author Organization [facility] Address [address] [place] [address] Care Team Providers Care Nib Inspector Name Role Phone Jae Macdonald MD Primary Care Provider [phone] Source Comments [facility],non-owned Affiliates and Associated Physician Practices is amultiple site organization consisting of ambulatory clinics and hospital sitesin [place], [place], [place] and [place]. This disclosure is being madepursuant to the Care Everywhere program and may not contain all information available regarding this patient. Last updated 18.[facility] Allergies No known active allergies Medications * [...] Diagnosed Date Coronary artery disease invo lving bois forte coronary artery of bois [place]te heart 08/22/2020 Social History Tobacco Use Types Packs/Day Years Used Date Smoking Tobacco: Never Assessed Sex and Gender Information Value Date Recorded Sex Assigned at Not on file Legal Sex Male 8:17 AM HAND SHAPER Gender Identity Not on file Sexual Orientation Not on file Last Filed Vital Signs Vital Sign Reading Time Taken Comments Blood Pressure 125/66 08/23/2020 8:22 AM HAND SHAPER Pulse 55 08/23/2020 8:22 AM HAND SHAPER Temperature 36.7 C (98 F) 08/23/2020 8:22 AM HAND SHAPER Respiratory Rate 18 08/23/2020 8:22 AM HAND SHAPER Oxygen Saturation 93% 08/23/2020 8:22 AM HAND SHAPER Inhaled Oxygen Concentration - - Weight 86.9 kg (191 lb 9.6 oz) 08/22/2020 12:50 PM HAND SHAPER Height 182.9 cm (6') 08/22/2020 12:50 PM HAND SHAPER Body Mass Index 25.99 08/22/2020 12:50 PM HAND SHAPER Plan of Treatment Health Maintenance Due Date [...] 2005 ZOSTER VACCINE (1 of 2) 2005 DEPRESSION SCREENING 09/23/2024 COVID-19 VACCINE (1 - 2023-2 5 season) 2025 INFLUENZA VACCINE (#1) 2025 Respiratory Syncytial Virus (RSV) Vaccine Pt: [...] 3:34 PM 08/22/2020 3:54 PM Care Teams Nib Inspector Relationship Specialty Start Date End Date Jae Macdonald MD [address] [place] [address] PCP - General Gastroenterology 08/27/19
--- OUTSIDE RECORDS SUMMARY | 2025-06-23 09:23 | XMS_ITS | Clinical Summary ---
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 Gender Identity Not on file [...] 10:22 AM CDT Height 180.3 cm (5' 11) 02/04/2025 10:22 AM CDT Body Mass Index 24.83 02/04/2025 10:22 AM CDT Plan of Treatment Upcoming Encounters Date Type Department Care Team (Late st Contact Info) Description 06/29/2025 11:45 AM CDT Office Visit [facility] Oncology and Hematology - [place] [address] [facility] [address] [place] [address] Brennon Barton MD [address] [facility] [address] [place] [address] Health Maintenance Due Date Last Done Comments PNEUMOCOCCAL VACCINE 50+ YEA RS (1 of 2 - PCV) 1974 Traditional Medicare (ACO) A nnual Wellness Visit 1974 COLORECTAL SCREENING 2000 Colorectal Cancer Screening 2000 FIT-DNA Q 3 years 2000 FIT/FOBT Q 1 year 2000 Flex Sig/CT Colonography Q 5 years 2000 ZOSTER VACCINE (1 of 2) 2005 INFLUENZA VACCINE (#1) 2025 06/02/2020, 2018 COVID-19 Vaccine (3 - 2024- season) 2025, 11/09/2020 RSV VACCINE (60+ or ) (1 - 1-dose 75+ series) 2030 DTAP/TDAP/TD VACCINES (2 - Td or Tdap) 05/23/2033 Insurance MEDICARE PART A AND B [facility]
--- OUTSIDE RECORDS SUMMARY | 2025-06-23 09:23 | XMS_ITS | Encounter Summary ---
Author Organization [facility] Address [address] [facility] [address] [place] [address] Care Team Providers Care Eyelet Row Marker Name Role Phone David De La Rosa MD Primary Care Provider David De La Rosa MD Primary Care Provider [phone] Jae Macdonald MD Primary Care Provider Main Vanessa MD Unavailable Stephanie Angela MD Unavailable [phone] Encounter Details Date Type Department Care Team (Late st Contact Info) Description 10/23/2016 Orders Only [facility] ProviderLee MD [address] [place] [address] Social History Tobacco Use Types Packs/Day Years Used Date Smoking Tobacco: Former Cigarettes Q uit: 09/23/1979 Alcohol Use Standard Drinks/Week Comments Yes 0 (1 standard drink = 0.6 oz pur e alcohol) Sex and Gender Information Value Date Recorded Sex Assigned at Not on file 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
[2025-06-23 10:15] LABS: Alanine Aminotransferase 38 U/L (6-50); Albumin Level 4.6 g/dL (3.5-5.1); Alkaline Phosphatase 79 U/L (38-126); Anion Gap 9 mmol/L (4-12); Aspartate Amino Transferase 32 U/L (17-59); Bilirubin,Total 0.5 mg/dL (0.2-1.3); Blood Urea Nitrogen 28 mg/dL (9-20); Calcium 9.3 mg/dL (8.4-10.2); Carbon Dioxide 31 mmol/L (22-30); Chloride 101 mmol/L (98-107); Estimated Glomerular Filt Rate 56; Glucose 120 mg/dL (65-110); Potassium 4.9 mmol/L (3.4-5.0); Sodium 141 mmol/L (137-145); Total Protein 9.3 g/dL (6.3-8.2)
[2025-06-24 14:08] LABS: Albumin 3.7 g/dL (2.9-4.4); Alpha-1-Globulin 0.3 g/dL (0.0-0.4); Alpha-2-Globulin 1.0 g/dL (0.4-1.0); Gamma Globulin 2.2 g/dL (0.4-1.8)
== END 2025-06-23 08:58 | disposition home or self-care (01) ==
LOC: ANHLAB 08:59
PROVIDERS: Visit Provider Internal Medicine Hematology & Oncology
DX: D64.9 Anemia, unspecified (principal)
CPT/HCPCS: 36415; 80053; 84155; 84165; 85025